=== PATIENT | female | born 1980 | race Caucasian/White ===

== ENCOUNTER → 2019-06-25 08:45 | Outpatient (CLI) | payer OTHER, SELFPAY ==
[2019-06-25 09:23] LABS: Add Manual Diff / Slide Review NO; Basophils Absolute Auto 0 /uL (0-100); Basophils Percent Auto 0.6 % (0-2); Eosinophils Absolute Auto 100 /uL (0-450); Eosinophils Percent Auto 1.3 % (2-4); Hemoglobin 15.4 g/dL (12.0-16.0); Lymphocytes Absolute Auto 1400 /uL (1100-4500); Lymphocytes Percent Auto 26.6 % (25-40); Mean Corpuscular HGB Conc 34.2 % (30-36); Mean Corpuscular Hemoglobin 32.6 PG (26-34); Mean Corpuscular Volume 95.4 fL (80-100); Monocytes Absolute Auto 400 /uL (0-900); Monocytes Percent Auto 7.1 % (3-14); Neutrophils Absolute Auto 3400 /uL (1500-7000); Neutrophils Percent Auto 64.4 % (50-75); Platelet Count 238 X10^3/uL (150-400); Red Blood Cell Count 4.72 X10^6/uL (4.0-5.2); Red Cell Distribution Width 12.7 % (11.6-14.8); White Blood Cell Count 5.2 X10^3/uL (4.5-11.0)
[2019-06-25 09:39] LABS: Alanine Aminotransferase 16 IU/L (9-52); Albumin 4.7 g/dL (3.5-5.0); Albumin Globulin Ratio 1.4 (1.0-2.8); Alkaline Phosphatase 45 U/L (38-126); Aspartate Aminotransferase 26 IU/L (14-36); BUN Creatinine Ratio 17.5 (6-22); Bilirubin Total 0.9 mg/dL (0.2-1.3); Blood Urea Nitrogen 14 mg/dL (7-17); Calcium 9.5 mg/dL (8.4-10.2); Carbon Dioxide 27 mmol/L (22-32); Chloride 102 mmol/L (98-107); Cholesterol 151 mg/dL (140-199); Estimated Glomerular Filt Rate > 60.0 mL/min (>60); Globulin 3.3 g/dL (1.7-4.1); Glucose 92 mg/dL (70-100); HDL Cholesterol 96 mg/dL (40-60); HEMOLYSIS < 15 (0-50); LDL Cholesterol Calculated 37 mg/dL (<100); Potassium 4.2 mmol/L (3.4-5.1); Sodium 137 mmol/L (137-145); Triglycerides 92 mg/dL (35-150)
[2019-06-25 09:43] LABS: Erythrocyte Sedimentation Rate 2 MM/HR (0-20)
[2019-06-25 10:24] LABS: Thyroid Stimulating Hormone 1.96 uIU/mL (0.47-4.68)
== END ==
DX: R53.83 Other fatigue (principal); D62 Acute posthemorrhagic anemia
CPT/HCPCS: 36415; 80053; 80061; 84443; 85025; 85651

== ENCOUNTER 2019-08-14 06:05 | Emergency (ER) | payer OTHER, SELFPAY ==
[2019-08-14 06:16] VITALS: BP 121/69; PULSE 66; RESP 16; TEMP 36.6; O2SAT 99; BMI 21.2
--- NOTE | 2019-08-14 06:33 | ED_ITS ---
HPI - Nausea/Vomiting/Diarrhea General Chief complaint: Nausea/Vomiting/Diarrhea Stated complaint: gastrointestinal problem, lower gi Time Seen by Provider: 08/14/19 06:06 Source: patient Mode of arrival: Ambulatory Limitations: no limitations History of Present Illness HPI Narrative: 38-year-old female nonsmoker with noncontributory medical history presents with a chief complaint of episodes of loose stool, nausea and generally feeling unwell, coming in waves over the past few weeks. She had multiple episodes of explosive diarrhea over the weekend, but yesterday was much better. She did have an upper respiratory infection and is just finishing course of amoxicillin. She has had subjective fever but nothing measured. Her chief concern is that a co-worker was just diagnosed with Giardia and has very similar symptoms. Patient herself denies any travel or exposure to bad food. She is not dizzy nor weak or lightheaded. MD complaint: nausea and diarrhea Onset (ago): day(s) Description of Diarrhea: continuous Associated Abdominal Pain: No Severity: moderate Relieving factors: none Exacerbating factors: none Context: sick contacts Related Data Previous Rx's Medication Instructions Recorded Breast Pump - Double Electric / TOPICAL #1 11/12/16 ibuprofen 600 mg PO Q6HP PRN #30 tab 01/23/17 amoxicillin 875 mg-potassium 1 tab PO BID #20 tab 08/02/19 clavulanate 125 mg tablet benzonatate 100 mg capsule 100 mg PO BID PRN #14 cap 08/02/19 Allergies Allergy/AdvReac Type Severity Reaction Status Date / Time gluten [GLUTEN] Allergy Severe Hives Verified 08/14/19 06:20 Review of Systems Constitutional Constitutional: Denies chills, Denies fatigue, Denies fever(s), Denies frequent falls, Denies lethargy and Denies weakness Eyes Eyes: Denies change in vision, Denies eye discharge, Denies irritation and Denies loss of vision ENT Ears, Nose, Mouth, and Throat: Denies change in voice, Denies dizziness, Denies neck pain, Denies sore throat and Denies throat swelling Cardiovascular Cardiovascular: Denies chest pain, Denies irregular heart rhythm, Denies lightheadedness, Denies palpitations, Denies dyspnea, Denies dyspnea on exertion and Denies orthopnea Respiratory Respiratory: Denies cough, Denies dyspnea, Denies dyspnea on exertion and Denies wheezing Gastrointestinal Gastrointestinal: Denies change in bowel habits, Reports diarrhea, Denies nausea and Denies vomiting Genitourinary Genitourinary: Denies hematuria, Denies flank pain, Denies urinary incontinence and Denies urinary urgency Musculoskeletal Musculoskeletal: Denies back pain, Denies muscle weakness, Denies neck pain, Denies numbness and Denies tingling Integumentary/Breasts Skin/Breast: Denies pruritus, Denies erythema, Denies rash and Denies wounds Neurologic Neurologic: Denies behavioral changes, Denies confusion, Denies dizziness, Denies frequent falls, Denies loss of vision, Denies numbness, Denies tingling and Denies weakness Psychiatric Psychiatric: Denies anxiety, Denies behavioral changes, Denies confusion, Denies depression, Denies homicidal ideation and Denies suicidal ideation Endocrine Endocrine: Denies fatigue, Denies flushing and Denies palpitations Hematologic/Lymphatic Hematologic/Lymphatic: Denies easy bruising Allergic/Immunologic Allergic/Immunologic: Denies urticaria, Denies throat swelling and Denies wheezing Patient History Family History Mother Rheumatoid arthritis Social History Smoking Status: Never smoker alcohol intake frequency: 0-2 drinks per day Substance Use Type: does not use Exam Narrative Exam Narrative: GENERAL: [38] year old patient appears stated age. Well- nourished, well-developed patient, in mild distress. HEAD: Atraumatic. Normocephalic. EYES: Pupils equal round and reactive. Extraocular motions intact. No scleral icterus. No injection or drainage. ENT: Nose without bleeding, purulent drainage. Throat without erythema, tonsillar hypertrophy or exudate. Airway patent. NECK: Trachea midline. Non tender CARDIOVASCULAR: Regular rate and rhythm without murmurs, gallops, or rubs. RESPIRATORY: Clear to auscultation. Breath sounds equal bilaterally. No wheezes, rales, or rhonchi. GASTROINTESTINAL: Abdomen soft, non-tender, nondistended. EXTREMITIES: No edema or joint tenderness. BACK: Nontender without deformity or crepitance. No flank tenderness. NEURO: AOx3. SKIN: No rash or erythema of visible areas Initial Vital Signs Initial Vital Signs: Vital Signs Temperature 97.8 F 08/14/19 06:16 Pulse Rate 66 08/14/19 06:16 Respiratory Rate 16 08/14/19 06:16 Blood Pressure 121/69 08/14/19 06:16 Pulse Oximetry 99 08/14/19 06:16 Course Vital Signs Vital signs: Vital Signs - 8 hr 08/14/19 06:16 Temperature 97.8 F Pulse Rate 66 Respiratory Rate 16 Blood Pressure 121/69 Pulse Oximetry 99 Discharge Plan Departure Patient Disposition: Home Clinical Impression: Diarrhea Qualifiers: Diarrhea type: unspecified type Qualified Code(s): R19.7 - Diarrhea, unspecified Discharge Date/Time: 08/14/19 07:16 Instructions: Diarrhea Activity Restrictions/Additional Instructions: 1. Drink plenty of fluids with frequent small sips. 2. For the next 24 hours a clear liquid diet is advised. After that please employ a brat diet which would include bananas, rice, apples, toast. 3. Please take medications as directed. 4. Please follow-up with your doctor in the next 1-2 days. Call the office for an appointment. 5. Please return to the emergency Department for any worsening or persistent symptoms, such as increasing pain or fever. Prescriptions: No Action amoxicillin-pot clavulanate [Augmentin] 875-125 mg tablet 1 tab PO BID Qty: 20 RF: 0 benzonatate [Tessalon Perles] 100 mg capsule 100 mg PO BID PRN (Reason: cough) Qty: 14 RF: 0 Breast Pump - Double Electric Topical Qty: 1 RF: 0 ibuprofen 600 MG tablet 600 mg PO Q6HP PRNQty: 30 RF: 0 Referrals: Hussein Lutz MD [Primary Care Provider] -
--- NOTE | 2019-08-14 07:10 | PC.NURSE ---
provided stool sample. stool soft formed brown. No liquid or loose stool provided.
== END 2019-08-14 07:16 | disposition home or self-care (01) ==
PROVIDERS: Emergency Provider Emergency Medicine
DX: R19.7 Diarrhea, unspecified (principal)
CPT/HCPCS: 87177; 99282

== ENCOUNTER → 2019-10-23 16:58 | Outpatient (CLI) | payer OTHER, SELFPAY ==
[2019-10-23 18:53] LABS: Progesterone, Total 0.91 ng/mL
== END ==
DX: N97.0 Female infertility associated with anovulation (principal)
CPT/HCPCS: 36415; 84144

== ENCOUNTER → 2019-11-10 12:01 | Outpatient (CLI) | payer OTHER, SELFPAY | DX: N97.0 Female infertility associated with anovulation (principal) | CPT/HCPCS: 36415; 84144 ==

== ENCOUNTER → 2019-12-04 10:35 | Outpatient (CLI) | payer OTHER, SELFPAY ==
[2019-12-11 09:29] LABS: C.trachomatis RNA NEGATIVE
[2019-12-11 09:30] LABS: N.gonorrhoeae RNA NEGATIVE
== END ==
PROVIDERS: Visit Provider Obstetrics & Gynecology
DX: R10.2 Pelvic and perineal pain (principal)
CPT/HCPCS: 87491; 87591

== ENCOUNTER → 2019-12-13 09:08 | Outpatient (CLI) | payer OTHER, SELFPAY | DX: N97.0 Female infertility associated with anovulation (principal) | CPT/HCPCS: 36415; 84144 ==

== ENCOUNTER → 2020-02-11 12:31 | Outpatient (CLI) | payer OTHER, SELFPAY ==
[2020-02-11 14:48] LABS: HCG Quantitative /Beta subunit 1464.8 mIU/mL
== END ==
PROVIDERS: Obstetrics & Gynecology
DX: N91.2 Amenorrhea, unspecified (principal); Z87.59 Personal history of other complications of pregnancy, childbirth and the puerperium
CPT/HCPCS: 36415; 84702

== ENCOUNTER → 2020-02-13 11:09 | Outpatient (CLI) | payer OTHER, SELFPAY ==
[2020-02-13 13:59] LABS: HCG Quantitative /Beta subunit 3418.3 mIU/mL
== END ==
PROVIDERS: Referring Provider Obstetrics & Gynecology; Visit Provider Obstetrics & Gynecology
DX: N91.2 Amenorrhea, unspecified (principal); Z87.59 Personal history of other complications of pregnancy, childbirth and the puerperium
CPT/HCPCS: 84702

== ENCOUNTER → 2020-03-07 14:44 | Outpatient (ROUT) | payer OTHER, SELFPAY ==
[2020-03-07 16:21] LABS: Urine N gonorrhoeae NOT DETECTED
[2020-03-07 16:22] LABS: Urine Chlamydia NOT DETECTED
== END ==
PROVIDERS: PCP Obstetrics & Gynecology; Visit Provider Obstetrics & Gynecology
DX: Z34.81 Encounter for supervision of other normal pregnancy, first trimester (principal); Z11.3 Encounter for screening for infections with a predominantly sexual mode of transmission; Z3A.08 8 weeks gestation of pregnancy
CPT/HCPCS: 87491; 87591

== ENCOUNTER → 2020-03-28 09:04 | Outpatient (CLI) | payer OTHER, SELFPAY ==
[2020-03-28 10:06] LABS: Add Manual Diff / Slide Review NO; Basophils Absolute Auto 0 /uL (0-100); Basophils Percent Auto 0.4 % (0-2); Eosinophils Absolute Auto 100 /uL (0-450); Eosinophils Percent Auto 1.9 % (2-4); Hematocrit 44.3 % (36-46); Hemoglobin 15.8 g/dL (12.0-16.0); Lymphocytes Absolute Auto 1200 /uL (1100-4500); Lymphocytes Percent Auto 15.8 % (25-40); Mean Corpuscular HGB Conc 35.7 % (30-36); Mean Corpuscular Hemoglobin 33.6 PG (26-34); Mean Corpuscular Volume 94.2 fL (80-100); Monocytes Absolute Auto 500 /uL (0-900); Monocytes Percent Auto 6.9 % (3-14); Neutrophils Absolute Auto 5500 /uL (1500-7000); Platelet Count 220 X10^3/uL (150-400); Red Cell Distribution Width 12.2 % (11.6-14.8); White Blood Cell Count 7.4 X10^3/uL (4.5-11.0)
[2020-03-28 10:28] LABS: Appearance Urine UA CLEAR; Bilirubin Urine UA NEGATIVE (NEGATIVE); Color Urine UA YELLOW; Glucose Urine UA NEGATIVE (Negative); Ketones Urine UA NEGATIVE (NEGATIVE); Leukocyte Esterase Urine UA NEGATIVE (NEGATIVE); Nitrite Urine UA NEGATIVE (Negative); Occult Blood Urine UA NEGATIVE (Negative); Protein Urine UA NEGATIVE (Negative); Specific Gravity Urine UA <=1.005 (1.000-1.035); Urobilinogen Urine UA 0.2 E.U./dL (0.2)
[2020-03-28 11:40] LABS: Hepatitis B Surface Antigen NEGATIVE s/c (NEGATIVE); Rubella Antibody IgG 15.1 IU/mL (>15)
[2020-03-28 11:50] LABS: HIV 1 & 2 Ab/Ag 4th Gen Combo NEGATIVE (NEGATIVE); Hep C Virus Ab w/Reflex Quant NEGATIVE s/c (NEGATIVE)
[2020-03-29 04:19] LABS: RPR Screen Non Reactive (Non Reactive)
[2020-03-29 08:38] LABS: Varicella IgG Antibody 3824 index (Immune >165)
== END ==
PROVIDERS: Referring Provider Obstetrics & Gynecology; Visit Provider Obstetrics & Gynecology
DX: O09.521 Supervision of elderly multigravida, first trimester (principal); Z36.0 Encounter for antenatal screening for chromosomal anomalies
CPT/HCPCS: 36415; 80055; 81003; 81420; 86787; 86803; 86850; 86900; 86901; 87086; 87389

== ENCOUNTER → 2020-05-23 12:50 | Outpatient (CLI) | payer OTHER, SELFPAY ==
--- NOTE | 2020-05-23 12:51 | DI.US.S_ITS ---
PROCEDURE: US OB LIMITED INDICATIONS: CERVICAL LENGTH OUTSIDE/PRIOR DATING DATA: Last menstrual period (LMP): 01/11/2020 LMP-based estimated date of delivery (HETAL): 10/17/2020 First dating scan (date and location): 01/04/2020? Estimated date of delivery (HETAL) from first dating scan: Not documented TECHNIQUE: Real-time scanning was performed of the fetus, with image documentation. Endovaginal scanning: Not performed COMPARISON: [facility], , OB >= 14 WEEKS FETUS, 05/02/2020, 10:38. FINDINGS: A single living intrauterine gestation is present. heart rate 145 BPM. Maternal cervical canal: 5.5 cm long. Normal lower limit is 2.5 cm. Estimated gestational age from initial scan: Not documented. IMPRESSION: Normal cervical length measuring 5.5 cm. No funneling. Dictated by: Neftaly Colon M.D. on 05/23/2020 at 13:24 Approved by: Neftaly Cooln M.D. on 05/23/2020 at 13:27
[2020-05-23 13:13] LABS: Bacteria Urine None Seen; RBC Urine None Seen (0-5/HPF)
[2020-05-23 14:25] LABS: Appearance Urine UA CLEAR; Bilirubin Urine UA NEGATIVE (NEGATIVE); Color Urine UA YELLOW; Glucose Urine UA NEGATIVE (Negative); Ketones Urine UA NEGATIVE (NEGATIVE); Leukocyte Esterase Urine UA TRACE (NEGATIVE); Nitrite Urine UA NEGATIVE (Negative); Occult Blood Urine UA NEGATIVE (Negative); Protein Urine UA NEGATIVE (Negative); Specific Gravity Urine UA <=1.005 (1.000-1.035); Urobilinogen Urine UA 0.2 E.U./dL (0.2)
[2020-05-23 14:30] LABS: Culture Indicated Urine Cult Not Indicated; Squamous Epithelial Cell Urine 5-10 /HPF (0-5/HPF); WBC Urine 0-1/HPF (0-5/HPF)
== END ==
PROVIDERS: Referring Provider Obstetrics & Gynecology; Visit Provider Obstetrics & Gynecology
DX: O09.522 Supervision of elderly multigravida, second trimester (principal); O26.892 Other specified pregnancy related conditions, second trimester; R10.2 Pelvic and perineal pain; R39.9 Unspecified symptoms and signs involving the genitourinary system; Z3A.19 19 weeks gestation of pregnancy
CPT/HCPCS: 76815; 81001

== ENCOUNTER → 2020-05-30 12:10 | Outpatient (CLI) | payer OTHER, SELFPAY ==
--- NOTE | 2020-05-30 12:11 | DI.US.S_ITS ---
PROCEDURE: US OB >= 14 WEEKS FETUS INDICATIONS: ANATOMY OUTSIDE/PRIOR DATING DATA: Last menstrual period (LMP): 01/11/2020. LMP-based estimated date of delivery (HETAL): 10/17/2020 . First dating scan (date and location): 02/22/20. Estimated date of delivery (HETAL) from first dating scan: 10/17/2020 . TECHNIQUE: Real-time scanning was performed of the fetus, with image documentation and biometric measurements. Endovaginal scanning: No COMPARISON: [facility], , OB >= 14 WEEKS FETUS, 05/02/2020, 10:38. FINDINGS: General: A single living intrauterine gestation is present. Presentation: Breech. Placenta: Placental position is posterior , without previa. Amniotic fluid index: 12.3 cm, normal range is 5-24 cm. heart rate: 141 beats per minute. Maternal cervical canal: 3.9 cm long. Normal lower limit is 2.5 cm. biometrics: Biparietal diameter: 20 weeks 5 days Head circumference: 21 weeks 1 day Abdominal circumference: 21 weeks 2 days Femur length: 20 weeks 3 days Estimated gestational age from initial scan: 20 weeks 0 days Composite gestational age from present scan: 20 weeks 6 days Estimated weight and percentile: 388 g; 91st percentile Measurement variability for biometric dating: +/- 7 days from 14 weeks to 15 weeks 6 days gestation, +/- 10 days from 16 weeks to 21 weeks 6 days gestation, +/- 2 weeks from 22 weeks to 27 weeks 6 days gestation, +/- 3 weeks for 28 weeks gestation or later. weight reference: 4500 g or EFW >90/95% is considered macrosomia or large for gestational age. EFW <10% is small for gestational age. EFW 5% or less is considered intra-uterine growth restriction. Anatomic survey: Neuro: Ventricles are non-dilated at less than 10 mm. Cisterna magna is normal at 3-11 mm. Cerebellum is normal in size and morphology. Nuchal skin fold: Normal at less than 6 mm between 14-21 weeks gestational age. Face: Nose and lips, facial profile are normal. Spine: No evidence for spina bifida. Heart: 4-chambered heart is present, with normal ventricular outflow tracts. Diaphragm: Diaphragm is intact. Stomach: Left-sided stomach is present. Kidneys: No hydronephrosis. Normal is less than 5 mm in 2nd trimester, less than 7 mm in 3rd trimester. Cord: 3-vessel cord has orthotopic insertion. Bladder: Normal in size. Extremities: All 4 extremities identified. IMPRESSION: 1. Single living IUP redemonstrated and interval growth is normal. 2. Normal anatomic survey. Dictated by: Mateo Narayanan [facility] Interpreted: Quentin Johnson MD on 05/30/2020 at 13:51 Approved by: Quentin Johnson M.D. on 05/30/2020 at 15:59
== END ==
PROVIDERS: PCP Obstetrics & Gynecology; Referring Provider Obstetrics & Gynecology; Visit Provider Obstetrics & Gynecology
DX: Z34.82 Encounter for supervision of other normal pregnancy, second trimester (principal); Z3A.20 20 weeks gestation of pregnancy
CPT/HCPCS: 76811

== ENCOUNTER → 2020-07-21 09:16 | Outpatient (CLI) | payer OTHER, SELFPAY ==
[2020-07-21 12:24] LABS: Hematocrit 34.1 % (36-46); Hemoglobin 11.6 g/dL (12.0-16.0)
[2020-07-21 12:53] LABS: GTT (PREG) 1 Hour PP 50gm Dose 136 mg/dL (76-139)
== END ==
PROVIDERS: PCP Obstetrics & Gynecology; Referring Provider Obstetrics & Gynecology; Visit Provider Obstetrics & Gynecology
DX: Z34.82 Encounter for supervision of other normal pregnancy, second trimester (principal); Z3A.24 24 weeks gestation of pregnancy
CPT/HCPCS: 36415; 82950; 85014; 85018

== ENCOUNTER → 2020-09-22 12:41 | Outpatient (CLI) | payer OTHER, SELFPAY ==
--- NOTE | 2020-09-22 12:42 | DI.US.S_ITS ---
PROCEDURE: US OB LIMITED INDICATIONS: GROWTH ULTRASOUND OUTSIDE/PRIOR DATING DATA: Last menstrual period (LMP): 01/11/20 . LMP-based estimated date of delivery (HETAL): 10/17/20 . First dating scan (date and location): 02/22/20 . Estimated date of delivery (HETAL) from first dating scan: 10/17/20 . TECHNIQUE: Real-time scanning was performed of the fetus, with image documentation. Endovaginal scanning: Not needed COMPARISON: [facility], OB LIMITED, 05/23/2020, 13:03. FINDINGS: A single living intrauterine gestation is present. Presentation: Vertex. Placenta: Placental position is posterior , without previa. Amniotic fluid index: 18.6 cm, normal range is 5-24 cm. heart rate: 143 beats per minute. Maternal cervical canal: 5.5 cm long. Normal lower limit is 2.5 cm. Estimated gestational age from initial scan: 36 weeks 3 days biometry is internally consistent with a current gestational age estimate of 39 weeks 0 days. BPD 9.7 cm, 39 weeks 3 days. Head circumference 35.5 cm, 41 weeks 3 days. Abdominal circumference 34.9 cm, 38 weeks 5 days. Femur length 7.1 cm, 36 weeks 1 day. The estimated current weight is 3532 g, at the threshold for macrosomia, 95th percentile for current gestational age. . IMPRESSION: Normal amniotic fluid volume, vertex presentation. The biometry yields an estimated weight of 3532 g, which places the fetus at the thoracic old for macrosomia, at the upper 95th percentile. Normal amniotic fluid volume. Dictated by: Honorio Roman M.D. on 09/22/2020 at 14:59 Approved by: Honorio Roman M.D. on 09/22/2020 at 15:03
== END ==
PROVIDERS: Referring Provider Obstetrics & Gynecology; Visit Provider Obstetrics & Gynecology
DX: Z34.83 Encounter for supervision of other normal pregnancy, third trimester (principal); Z3A.36 36 weeks gestation of pregnancy
CPT/HCPCS: 76815; 87653

== ENCOUNTER → 2020-09-22 14:31 | Outpatient (CLI) | payer OTHER, SELFPAY ==
[2020-09-23 11:26] LABS: Strep Grp B PCR POS for Grp B Strep
== END ==
PROVIDERS: Visit Provider Obstetrics & Gynecology
DX: Z34.83 Encounter for supervision of other normal pregnancy, third trimester (principal); Z3A.36 36 weeks gestation of pregnancy
CPT/HCPCS: 87653

== ENCOUNTER 2020-09-29 12:50 | Outpatient (CLI) | payer OTHER, SELFPAY ==
--- NOTE | 2020-09-29 17:49 | PM.OBTRLD ---
Visit Information Visit Information Date of evaluation: 09/29/20 Primary OB Provider: Helen Yuan Reason for Evaluation: Yes non-stress test Comments/Additional reasons for admission: Patient at 39 and 6 sent for NST for decreased movement, no other complaints. 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 Rosacea (~2018) (spontaneous vaginal delivery) (~2016) UTI (urinary tract infection) Surgical History (Updated 03/05/20 @ 14:21 by Romelia Bermeo RN) H/O wisdom tooth extraction (~2002) History of excision of pilonidal cyst (~2006) S/P lumpectomy, left breast (~2004) Family History (Updated 03/06/20 @ 20:47 by Shira Valentin) Mother Rheumatoid arthritis Thyroid cancer TIA (transient ischemic attack) Ocular migraine Age related osteoporosis Thrombosis Pulmonary embolism Hypertension Father Hypertension Grandfather Accident Grandmother Colorectal cancer Squamous cell skin cancer Hypertension Grandfather Myocardial infarction Grandmother Mental health disorder Sister Foot drop Anorexia Sister Numbness in both hands Family/Other Epilepsy Social History marital status: number of children: 1 household members: spouse and children pets and animals: Yes (X 2 dogs and X 1 cat) education level: master's degree occupational status: employed current occupational exposures/hazards: No special mikael needs: No Smoking Status: Never smoker second hand exposure: No alcohol intake: former substance use type: does not use Review of Systems Constitutional Constitutional: Reports system reviewed and no additional complaints, except as documented Evaluation Evaluation Baseline heart rate: 130 Variability: Moderate (11-25) monitor accelerations: Present monitor decelerations: Absent Contraction Frequency (minutes): 4 Category of Tracing: Reactive Status: Category l Diagnosis, Plan/Disposition Plan/Disposition Plan: Emphatically reactive NST, reassuring status. Patient arabella asymptomatically Q 4, labor precautions reiterated. Home with routine precautions. OB Disposition: home
== END 2020-09-29 13:36 | disposition home or self-care (01) ==
LOC: LABOR 13:21 → OB 10-07 09:38
PROVIDERS: Referring Provider Obstetrics & Gynecology; Visit Provider Obstetrics & Gynecology
DX: O36.8130 Decreased fetal movements, third trimester, not applicable or unspecified (principal); Z3A.37 37 weeks gestation of pregnancy
CPT/HCPCS: 59025; G0378; G0379

== ENCOUNTER → 2020-10-06 11:34 | Outpatient (CLI) | payer OTHER, SELFPAY ==
[2020-10-06 12:01] LABS: COVID19 -Nasal RAPID Negative (Negative)
== END ==
PROVIDERS: Visit Provider Obstetrics & Gynecology
DX: Z01.812 Encounter for preprocedural laboratory examination (principal); Z20.822 Contact with and (suspected) exposure to COVID-19
CPT/HCPCS: 87635

== ENCOUNTER 2020-10-08 18:26 | Inpatient (IN) | payer OTHER, SELFPAY ==
[2020-10-08 20:12] VITALS: BP 123/62
[2020-10-08] MEDS: DINOPROSTONE VAG (CERVIDIL) 10 MG VAG (20:13)
[2020-10-08 20:29] LABS: Add Manual Diff / Slide Review NO; Basophils Absolute Auto 0 /uL (0-100); Basophils Percent Auto 0.5 % (0-2); Eosinophils Absolute Auto 100 /uL (0-450); Eosinophils Percent Auto 0.8 % (2-4); Hematocrit 31.7 % (36-46); Hemoglobin 10.3 g/dL (12.0-16.0); Lymphocytes Absolute Auto 1800 /uL (1100-4500); Lymphocytes Percent Auto 19.3 % (25-40); Mean Corpuscular HGB Conc 32.5 % (30-36); Mean Corpuscular Hemoglobin 28.5 PG (26-34); Mean Corpuscular Volume 87.5 fL (80-100); Monocytes Absolute Auto 900 /uL (0-900); Monocytes Percent Auto 9.7 % (3-14); Neutrophils Absolute Auto 6400 /uL (1500-7000); Neutrophils Percent Auto 69.7 % (50-75); Platelet Count 220 X10^3/uL (150-400); Red Blood Cell Count 3.62 X10^6/uL (4.0-5.2); Red Cell Distribution Width 14.1 % (11.6-14.8); White Blood Cell Count 9.2 X10^3/uL (4.5-11.0)
[2020-10-08] MEDS: ZOLPIDEM 5 MG TABLET PO (23:22)
--- NOTE | 2020-10-09 08:05 | P.HPOB_ITS ---
OB HPI Date/Time Date of admission: 10/09/20 Date Patient Seen: 10/09/20 Time Patient Seen: 07:50 History of Present Condition Chief complaint: EVAL OF LABOR : 3 Para: 1 Estimated Date of Delivery: 10/16/20 Estimated Gestational Age (weeks): 39 Narrative: Zack Aguillon is a 40 year old 011 with an HETAL of 39 weeks by first-trimester ultrasound, admitted for induction of labor for suspected macrosomia. The patient has a history of a forceps assisted vaginal delivery of an 8 lb 6 oz baby complicated by third-degree laceration, an 3rd trimester us showing this baby on track to be 9-9.5lbs. Her has been otherwise uncomplicated, with a normal glucose screen with appropriate timing. Her prior was similarly uncomplicated, and she has no contributory supervisor incising, medical, surgical, or family history. Indications Indication for induction OB: other (suspected macrosomia) History of Present care: good care Dating criteria: LMP confirmed by 1st trimester US Ultrasounds: normal 1st trimester US and normal mid trimester US Obstetrical complications: none Medical complications: none Preadmission Labs Blood type: O (+) positive -: GBS status: positive, HBsAG: negative, HIV: negative and RPR/VDLR: negative -: Chlamydia screen: not detected and Gonorrhea screen: not detected -: Rubella: immune and Varicella: immune Cell-free DNA: wnl Urine: no growth 1 hr GTT: 136 Prior (ies) History: G1: 01/20/17, FAVD, 42.1, 8#6, F, 3rd degree laceration G2: 01/06/20, SAB, 6 wks Evaluation Evaluation Baseline heart rate: 130 Variability: Moderate (11-25) monitor accelerations: Present monitor decelerations: Absent Contraction Frequency (minutes): 5 Category of Tracing: Reactive Status: Category l Cervical dilation (cm): 3 Cervical effacement (%): 75 station: -1 Laboratory results: Laboratory Tests 10/08/20 10/08/20 20:00 20:00 WBC 9.2 RBC 3.62 L Hgb 10.3 L Hct 31.7 L MCV 87.5 MCH 28.5 MCHC 32.5 RDW 14.1 Plt Count 220 Neut % (Auto) 69.7 Lymph % (Auto) 19.3 L [place] % (Auto) 9.7 Eos % (Auto) 0.8 L Baso % (Auto) 0.5 Neut # (Auto) 6400 Lymph # (Auto) 1800 [place] # (Auto) 900 Eos # (Auto) 100 Baso # (Auto) 0 Blood Type O Positive Antibody Screen Negative [facility] Medical History Allergies (~2000) AMA (advanced maternal age) multigravida 35+ Anxiety (~2016) Dense breast tissue Episode of syncope (~2016) Maternal blood transfusion (~2016) 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 Rosacea (~2018) (spontaneous vaginal delivery) (~2016) UTI (urinary tract infection) Surgical History H/O wisdom tooth extraction (~2002) History of excision of pilonidal cyst (~2006) S/P lumpectomy, left breast (~2004) Family History Mother Rheumatoid arthritis Thyroid cancer TIA (transient ischemic attack) Ocular migraine Age related osteoporosis Thrombosis Pulmonary embolism Hypertension Father Hypertension Grandfather Accident Grandmother Colorectal cancer Squamous cell skin cancer Hypertension Grandfather Myocardial infarction Grandmother Mental health disorder Sister Foot drop Anorexia Sister Numbness in both hands Family/Other Epilepsy Social History marital status: number of children: 1 household members: spouse and children pets and animals: Yes (X 2 dogs and X 1 cat) education level: master's degree occupational status: employed current occupational exposures/hazards: No special mikael needs: No Smoking Status: Never smoker second hand exposure: No alcohol intake: former substance use type: does not use Meds Home Medications and Allergies Home Medications Medication Instructions Recorded Confirmed Type prenat.vits,miguelina,ali-lfjd-shucj 1 tab PO DAILY 03/05/20 10/08/20 History Allergies Allergy/AdvReac Type Severity Reaction Status Date / Time gluten [GLUTEN] Allergy Severe Hives Verified 06/27/20 13:45 Review of Systems Constitutional Constitutional: Reports system reviewed and no additional complaints, except as documented Cardiovascular Cardiovascular: Reports system reviewed and no additional complaints, except as documented Respiratory Respiratory: Reports system reviewed and no additional complaints, except as documented Gastrointestinal Gastrointestinal: Reports system reviewed and no additional complaints, except as documented Musculoskeletal Musculoskeletal: Reports system reviewed and no additional complaints, except as documented Neurologic Neurologic: Reports system reviewed and no additional complaints, except as documented Exam Vital Signs (past 8 hours): 128/62, HR 71, afebrile Resp Effort & Inspection: normal respiratory effort Auscultation: clear to auscultation bilaterally Cardio Rate: regular rate Rhythm: regular rhythm GI Palpation: soft and No tender Extrem General: normal to inspection Objective Labs Result Diagrams: 10/08/20 20:00 Labs: Laboratory Results - last 24 hr 10/08/20 10/08/20 20:00 20:00 WBC 9.2 RBC 3.62 L Hgb 10.3 L Hct 31.7 L MCV 87.5 MCH 28.5 MCHC 32.5 RDW 14.1 Plt Count 220 Neut % (Auto) 69.7 Lymph % (Auto) 19.3 L [place] % (Auto) 9.7 Eos % (Auto) 0.8 L Baso % (Auto) 0.5 Neut # (Auto) 6400 Lymph # (Auto) 1800 [place] # (Auto) 900 Eos # (Auto) 100 Baso # (Auto) 0 Blood Type O Positive Antibody Screen Negative Assessment and Plan Assessment and Plan Assessment and Plan narrative: This patient is admitted for induction of labor for an EFW of just over 9#, with a history of FAVD of 8#6 with a 3rd degree perineal laceration. She has undergone cervical ripening with cervidil, which was removed this morning. Patient is for PCN for GBS starting now, and for pitocin per protocol after an adequate interval. - cEFM, toco - NO or epidural upon request
[2020-10-09] MEDS: PENICILLIN G POTASSIUM 5,000,000 UNIT in DEXTROSE 5% IN WATER 250 ML IV (08:41)
[2020-10-09] MEDS: LACTATED RINGERS 1,000 ML 100 ML IV ×2 (08:41→15:10)
[2020-10-09] MEDS: OXYTOCIN PREMIX 30 UNIT/500 ML PLAST..BAG IV (08:56)
[2020-10-09] MEDS: PENICILLIN G POTASSIUM 3,000,000 UNIT/50 ML FROZ.PIGGY 100 UNIT IV ×2 (12:26→16:23)
--- NOTE | 2020-10-09 12:44 | PM.OBPNLAB ---
Date/Time Date Patient Seen: 10/09/20 Time Patient Seen: 12:44 Pain Control Pain control: tolerating well Pelvic Exam Dilation (cm): 4 Effacement (%): 70 station: -1 Amniotic membrane status: Ruptured (AROM, clear) Contractions Contractions on admission: irregular Monitor mode: External Pitocin rate (mU/min): 13 Contraction frequency (min): 3 Contraction pattern: Regular Contraction intensity: Moderate Status status: Category l Heart Rate Baseline: 130 Monitor Accelerations: Present Monitor Decelerations: Absent Monitor Variability: Moderate Assessment and Plan Assessment: induction ongoing Plan: continuous present management Comments: s/p 2nd dose PCN, AROM for clear fluid at this exam. Continue present management.
--- NOTE | 2020-10-09 17:44 | P.PNOB_ITS ---
Date/Time Date Patient Seen: 10/09/20 Time Patient Seen: 17:45 Pain Control Pain control: epidural Pelvic Exam Dilation (cm): 6 Effacement (%): 80 station: -1 Amniotic membrane status: Ruptured (AROM, clear) Comments: SVE per nursing staff at 15:00 6.5/80/-1. Cervix edematous. Significant molding. Contractions Monitor mode: External Pitocin rate (mU/min): 14 Contraction frequency (min): 3 Contraction pattern: Regular Contraction intensity: Moderate Status status: Category l Heart Rate Baseline: 130 Monitor Accelerations: Present Monitor Decelerations: Early Monitor Variability: Moderate Comments: period of minimal variability, overall reassuring. Assessment and Plan Assessment: induction ongoing Plan: continuous present management Comments: IUPC inserted, no cervical change. Discussed suspicion for CPD. Dis cussed options and next steps. status reassuring, +scalp stim.
[2020-10-09] MEDS: METHYLERGONOVINE 0.2 MG/ML VIAL IM (18:45)
--- NOTE | 2020-10-09 19:16 | PM.OBPRVD ---
Labor & Delivery Delivery date: 10/09/20 Intrapartal events: Acceleration and Deceleration Cervical ripening method: per Cervidil protocol Induction method: per pitocin protocol Delivery augmentation: rupture of membranes Delivery monitor: external FHT, external uterine and internal uterine Route of delivery: L&D Laceration Description: Periurethral - 2nd Degree, Perineal - 1st Degree and Labial Delivery repair: vicryl Estimated blood loss (mL): 400 Anesthesia Type: Epidural Narrative: This patient presented for induction of labor for suspected macrosomia. She was induced with cervidil and pitocin. After a prolonged active phase, she progressed to fully dilated. She had a 30 minute second stage complicated by recurrent variable decelerations with pushing. She was delivered of a healthy baby girl, apgars 8+9, weight 8#6, with a body cord over the anterior shoulder. Shoulders delivered with ease, and the placenta delivered spontaneously and intact shortly thereafter. A 2nd degree longitudinal perineal laceration was repaired with 3-0 vicryl in a running fashion, and a left labial laceration extending to the clitoral francois was repaired with interrupted sutures as necessary to reapproximate the tissue. A right labial laceration was repaired with interrupted sutures to achieve hemostasis. 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 There were no other intrapartum or immediate complications. Baby 1: gender: Female Presentation: vertex Position: Left Occiput Anterior Placenta delivery description: Spontaneous Cord Vessel Description: 3 Vessels score (1 min): 8 score (5 min): 9 Plan for aftercare: Routine care.
[2020-10-09] MEDS: ACETAMINOPHEN 325 MG TABLET 650 MG PO (20:07)
[2020-10-09] MEDS: IBUPROFEN 600 MG TABLET PO (20:07)
[2020-10-10] MEDS: DERMOPLAST SPRAY 20% 60 ML 1 SPRAY TOP (01:24)
[2020-10-10] MEDS: ACETAMINOPHEN 325 MG TABLET 650 MG PO ×3 (01:24→14:46)
[2020-10-10] MEDS: IBUPROFEN 600 MG TABLET PO ×3 (01:25→14:46)
[2020-10-10] MEDS: METHYLERGONOVINE 0.2 MG TABLET PO ×3 (01:25→14:47)
[2020-10-10] MEDS: LANOLIN OINT 7 GM 1 APPLIC TOP ×2 (08:16→13:31)
[2020-10-10] MEDS: PRENATAL VIT,CALC/IRON/FOLIC 1 TABLET 1 TAB PO (08:17)
--- NOTE | 2020-10-10 10:09 | PM.OBDS.1 ---
Discharge Providers Provider Date of admission: 10/08/20 18:26 Discharge Date: 10/10/20 Primary care physician: Doctor Chuy MD Consults: 10/10/20 19:12 Consult to [employer] Routine Comment: Discharge provider: Helen Yuan MD Summary Hospital Course Date Patient Seen: 10/10/20 Time Patient Seen: 10:09 Procedures: Spontaneous vaginal delivery Hospital Course: This patient is a 40-year-old G2 now P2 admitted for induction of labor at 39 weeks for suspected macrosomia. She was induced with Cervidil and Pitocin, and after prolonged active stage of labor, progressed to fully dilated. After short pushing stage, she was delivered of a healthy baby girl, Apgars 8 and 9, weight 8 lb 6 oz. A second-degree perineal laceration and bilateral labial lacerations were repaired with 3-0 Vicryl in the usual fashion. 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 There were no other intrapartum or immediate complications, and the patient went home on day 1 with routine precautions and follow-up. Peripartum Data Delivery Method: Natural Vaginal Laceration Description: Perineal - 2nd Degree and Labial Procedures: Vaginal delivery complications: none [place] 1: Gender: Female Disposition of : home Discharge Diagnosis (1) Vaginal delivery: Status: Acute Status at Discharge Cognitive/behavioral status at discharge: oriented Functional status at discharge: independent ambulation Overall status at discharge: patient is progressing back to baseline Time Spent with Patient Time attestation: Total time spent providing and/or coordinating discharge services: Objective Labs Result Diagrams: 10/08/20 20:00 Exam Vital Signs (past 8 hours): 112/67, HR 81 Narrative Exam Narrative: Patient well-appearing, resting in bed. Ambulating, tolerating p.o., voiding, passing flatus. Mild to moderate lochia. No headaches, visual changes, chest pain, palpitations, leg pain, good vulvar pain control without opioids. Const General: cooperative, healthy appearing and comfortable Resp Effort & Inspection: normal respiratory effort Auscultation: clear to auscultation bilaterally Cardio Rate: regular rate Rhythm: regular rhythm GI Palpation: soft and No tender Other: Fundus firm, well below U, some gas in belly Discharge Plan Discharge Plan Patient Disposition: Home Discharge orders & Medications Prescriptions: Continued prenat.vits,miguelina,[id number] Tablet 1 tab PO DAILY RF: 0 Follow up/Referrals: Doctor Vera MD [Primary Care Provider] - WeedHelen MD [Physician] - 6 Weeks () Diet/Activity/Treatments Diet: Regular Activity: Nothing in the vagina for 6 weeks. Avoid lifting more than 10 lb for 6 weeks. If you have increasing vaginal bleeding, fevers, chills, headaches, visual changes, trouble breathing, chest pain, increasing abdominal pain, or any other symptoms or concerns, call the clinic or come to the emergency room. Other treatments: Use 600 mg of ibuprofen every 6 hours and 650 mg of acetaminophen every 6 hours for pain control as needed. Skin/Wound/Dressing Care Report to your healthcare provider any signs of infection, such as:: chills, fever, night sweats, increased pain, unusual drainage and unusual redness Visit Report/Discharge Packet Instructions: DI for Labor and Delivery, Vaginal Discharge Data Primary Care Provider: Doctor Chuy
[2020-10-10] MEDS: DOCUSATE 100 MG CAPSULE PO (11:01)
[2020-10-10 14:20] VITALS: BP 123/62; PULSE 68; RESP 16; TEMP 36.4
== END 2020-10-10 17:00 | disposition home or self-care (01) | DRG 807 ==
PROVIDERS: Admitting Provider Obstetrics & Gynecology; Referring Provider Obstetrics & Gynecology; Visit Provider Obstetrics & Gynecology
DX: O99.824 Streptococcus B carrier state complicating childbirth (principal); Z37.0 Single live birth; Z3A.39 39 weeks gestation of pregnancy; O70.1 Second degree perineal laceration during delivery; O70.0 First degree perineal laceration during delivery; Z20.822 Contact with and (suspected) exposure to COVID-19
CPT/HCPCS: 01967; 36415; 59050; 59400; 85025; 86850; 86900; 86901; G0379; J2210; J2540; J2590

== ENCOUNTER → 2021-02-19 08:08 | Outpatient (CLI) | payer OTHER, SELFPAY ==
[2021-02-19 08:31] LABS: Add Manual Diff / Slide Review NO; Basophils Absolute Auto 0 /uL (0-100); Basophils Percent Auto 0.9 % (0-2); Eosinophils Absolute Auto 100 /uL (0-450); Eosinophils Percent Auto 3.1 % (2-4); Hematocrit 44.6 % (36-46); Hemoglobin 14.8 g/dL (12.0-16.0); Lymphocytes Absolute Auto 1400 /uL (1100-4500); Lymphocytes Percent Auto 30.6 % (25-40); Mean Corpuscular HGB Conc 33.2 % (30-36); Mean Corpuscular Hemoglobin 29.8 PG (26-34); Mean Corpuscular Volume 89.9 fL (80-100); Monocytes Absolute Auto 400 /uL (0-900); Monocytes Percent Auto 9.1 % (3-14); Neutrophils Absolute Auto 2500 /uL (1500-7000); Neutrophils Percent Auto 56.3 % (50-75); Platelet Count 243 X10^3/uL (150-400); Red Blood Cell Count 4.96 X10^6/uL (4.0-5.2); Red Cell Distribution Width 14.6 % (11.6-14.8); White Blood Cell Count 4.5 X10^3/uL (4.5-11.0)
[2021-02-19 08:51] LABS: Alanine Aminotransferase 20 IU/L (<35); Albumin 4.8 g/dL (3.5-5.0); Albumin Globulin Ratio 1.4 (1.0-2.8); Alkaline Phosphatase 77 U/L (38-126); Aspartate Aminotransferase 26 IU/L (14-36); BUN Creatinine Ratio 15.8 (6-22); Bilirubin Total 0.3 mg/dL (0.2-1.3); Blood Urea Nitrogen 12 mg/dL (7-17); Calcium 9.6 mg/dL (8.4-10.2); Carbon Dioxide 27 mmol/L (22-32); Chloride 103 mmol/L (98-107); Cholesterol 195 mg/dL (140-199); Estimated Glomerular Filt Rate > 60.0 mL/min (>60); Globulin 3.4 g/dL (1.7-4.1); Glucose 91 mg/dL (70-100); HDL Cholesterol 97 mg/dL (40-60); HEMOLYSIS < 15 (0-50); LDL Cholesterol Calculated 83 mg/dL (<100); Sodium 139 mmol/L (137-145); Total Protein 8.2 g/dL (6.3-8.2); Triglycerides 73 mg/dL (35-150)
[2021-02-19 08:52] LABS: Potassium 4.1 mmol/L (3.4-5.1)
[2021-02-19 09:23] LABS: Free T3, Triiodothyronine Free 3.85 pg/mL (2.77-5.27); Free T4, Direct Thyroxine 1.01 ng/dL (0.78-2.19)
[2021-02-19 09:37] LABS: Thyroid Stimulating Hormone 2.68 uIU/mL (0.47-4.68); Vitamin B12 878 pg/mL (239-931)
== END ==
PROVIDERS: Family Provider Family Medicine; PCP Family Medicine; Referring Provider Family Medicine; Visit Provider Family Medicine
DX: D62 Acute posthemorrhagic anemia (principal); G62.9 Polyneuropathy, unspecified; Z13.21 Encounter for screening for nutritional disorder
CPT/HCPCS: 36415; 80053; 80061; 82306; 82607; 84439; 84443; 84481; 85025

== ENCOUNTER 2021-04-07 12:45 | Outpatient (RCR) | payer OTHER, SELFPAY ==
--- NOTE | 2021-01-27 15:14 | PT.OIE ---
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 Rosacea (~2018) (spontaneous vaginal delivery) (~2016) UTI (urinary tract infection) Past Surgical History (Last Reviewed 10/09/20 @ 18:00 by Helen Yuan MD) H/O wisdom tooth extraction (~2002) History of excision of pilonidal cyst (~2006) S/P lumpectomy, left breast (~2004) Visit Care Team Role Provider Type Gómez Reyez DO Family Provider Physician Primary Care Provider Specialty: Family Practice Address: [address] [place] [address] Email: Helen Yuan MD Attending Provider Physician Referring Provider Specialty: DIGITAL MANAGER Address: [address] [place] [address] Email: Physical Therapy Initial Evaluation PT-OP-A Visit Information Start: 01/27/21 07:29 Freq: Status: Active Protocol: Document 01/27/21 14:30 AMB (Rec: 01/27/21 16:01 AMB [email or web address]) Out-Patient Physical Therapy Visit Information Visit Information Visit Type Initial Evaluation Visit Start Time 14:30 Visit Stop Time 15:15 Total Visit Minutes 45 Visit Number 1 PT-OP-B Current Condition Start: 01/27/21 07:29 Freq: Status: Active Protocol: Document 01/27/21 14:34 AMB (Rec: 01/27/21 14:44 AMB [id number]) Current Condition History of Current Condition Onset Date 4 years ago Current Complaints Pelvic heaviness/weakness History of Current Condition Zack attends pelvic floor therapy after the of her second child. 2nd baby recently born, with traumatic first (forceps, 3rd degree tear, hemorhagge), feels week overall. Feels a bit of heaviness and fatigue. 3 months post , nursing, did have a second degree tear with this . Pelvic floor feels fatigued. Urgency , but denies incontinence. Did have a bit of fecal incontinence after first , but none after this . Denies painful intercourse. Prior Treatments and Tests Was evaluated in [place] after first and didn't need surgery but was also not sent to pelvic floor PT Treatment Goals Patient/Caregiver Goals Like to be able to run 3-4 miles again. Prior Functional Status Baseline Function- ADL's Independent Baseline Function- Mobility Independent Current Functional Impairments (Reported) Functional Limitations- ADL's Has not returned to running Personal Factors Other Personal Factors That May Effect is in the [place] and not Therapy/Recovery home currently, has a 4 year old and 4 month old PT-OP-I Pelvic Floor Start: 01/27/21 07:29 Freq: Status: Active Protocol: Document 01/27/21 14:30 AMB (Rec: 01/27/21 16:01 AMB [email or web address]) Pelvic Floor Assessment Urine Pelvic Floor Surgery No Urinary Symptoms Urge Sensation,Falling Out Feeling/Heavy Other Leakage Causes denies leaks Voiding Frequency 1-2 hrs Pelvic Clock Pelvic Clock Other scar at perineum- no tenderness with palpation. Diastasis recti 3 finger width above umbilical, 2 finger width below Prolapse Rectocele Grade 2 Perineal Descent Resting Absent Bearing Present Contraction Ability Voluntary Contraction Moderate Voluntary Relaxation Absent Manual Muscle Testing Left 3 Manual Muscle Testing Right 3 Manual Muscle Testing Anterior 2 Manual Muscle Testing Posterior 3 Muscle Endurance (Seconds) 5 Number of Quick Contractions In 10 4 Seconds PT-OP-T Assessment and Plan Start: 01/27/21 07:29 Freq: Status: Active Protocol: Document 01/27/21 14:30 AMB (Rec: 01/27/21 16:01 AMB [email or web address]) Physical Therapy Assessment Rehab Potential Rehabilitation Potential Good Evaluation Complexity Number of Personal Factors/Comorbidities 1-2 Number of Body Systems Impaired 1-2 Clinical Presentation at Evaluation Stable Impairments Impairments Strength Goals Three Impairment Return to function Short Term Goal (STG) Zack will lift 20 pounds from the floor to waist height while maintaing a pelvic floor contraction. STG Duration 4 weeks Feather Separator Goal (LTG) Zack will run for 1 mile without pelvic floor or core weakness. LTG Duration 8 weeks Two Impairment Diastasis recti Short Term Goal (STG) Zack will be independent and consistent with a HEP for her pelvic floor and transversus abdominus. STG Duration 4 weeks One Impairment Pelvic floor strength Short Term Goal (STG) Zack will maintain her pelvic floor strength for 10 seconds while in standing. STG Duration 4 weeks Assessment Summary Assessment Zack attends physical therapy with pelvic floor weakness and diastasis recti after the vaginal delivery of her second child. While this delivery was less traumatic than her first, she did not have pelvic PT after her first delivery. She denies specific incontinence but she does have mild prolapse and with her goal of return to running would benefit from pelvic PT to improve her ability to contract her pelvic floor and deep core musculature so that she can return to full function without her current symptoms of pelvic heaviness and weakness. Physical Therapy Plan Frequency and Duration Frequency of Treatment 1x/Week Duration of Treatment 10 weeks Plan of Care Start Date 01/27/21 Plan of Care End Date 04/07/21 Therapeutic Interventions Therapeutic Interventions Home Exercise Program,Manual Therapy,Neuromuscular Re- education,Self-Care/Home Management,Soft Tissue Mobilization,Therapeutic Activities,Therapeutic Exercises Modalities Biofeedback,Electric Stimulation Next Visit Focus/Plan Next Note Type Treatment Note Next Visit Plan Begin with supine/quadruped pelvic floor and quadruped with focus on 10 second hold, can try biofeedback.
--- NOTE | 2021-01-27 15:15 | PT.OPPOC ---
Physical, Occupational & Speech Therapy At [facility] Current Diagnoses Other specified disorders of muscle (01/27/21) Encounter for routine follow-up (01/27/21) Visit Care Team Role Provider Type Gómez Reyez DO Family Provider Physician Primary Care Provider Specialty: Family Practice Address: [address] [place] [address], [id number] Email: Helen Yuan MD Attending Provider Physician Referring Provider Specialty: ORACLE ARCHITECT Address: [address] [place] [address], [id number] Email: Plan Of Care PT-OP-T Assessment and Plan Start: 01/27/21 07:29 Freq: Status: Active Protocol: Document 01/27/21 14:30 AMB (Rec: 01/27/21 16:01 AMB [email or web address]) Physical Therapy Assessment Rehab Potential Rehabilitation Potential Good Evaluation Complexity Number of Personal Factors/Comorbidities 1-2 Number of Body Systems Impaired 1-2 Clinical Presentation at Evaluation Stable Impairments Impairments Strength Goals Three Impairment Return to function Short Term Goal (STG) Zack will lift 20 pounds from the floor to waist height while maintaing a pelvic floor contraction. STG Duration 4 weeks Senior Living Goal (LTG) Zack will run for 1 mile without pelvic floor or core weakness. LTG Duration 8 weeks Two Impairment Diastasis recti Short Term Goal (STG) Zack will be independent and consistent with a HEP for her pelvic floor and transversus abdominus. STG Duration 4 weeks One Impairment Pelvic floor strength Short Term Goal (STG) Zack will maintain her pelvic floor strength for 10 seconds while in standing. STG Duration 4 weeks Assessment Summary Assessment Zack attends physical therapy with pelvic floor weakness and diastasis recti after the vaginal delivery of her second child. While this delivery was less traumatic than her first, she did not have pelvic PT after her first delivery. She denies specific incontinence but she does have mild prolapse and with her goal of return to running would benefit from pelvic PT to improve her ability to contract her pelvic floor and deep core musculature so that she can return to full function without her current symptoms of pelvic heaviness and weakness. Physical Therapy Plan Frequency and Duration Frequency of Treatment 1x/Week Duration of Treatment 10 weeks Plan of Care Start Date 01/27/21 Plan of Care End Date 04/07/21 Therapeutic Interventions Therapeutic Interventions Home Exercise Program,Manual Therapy,Neuromuscular Re- education,Self-Care/Home Management,Soft Tissue Mobilization,Therapeutic Activities,Therapeutic Exercises Modalities Biofeedback,Electric Stimulation Next Visit Focus/Plan Next Note Type Treatment Note Next Visit Plan Begin with supine/quadruped pelvic floor and quadruped with focus on 10 second hold, can try biofeedback. Plan of Care Dates Plan of Care Start Date 01/27/21 Plan of Care End Date 04/07/21 Electronically Signed by: Marija Mcmahon, PT 01/28/21 0281 Please Sign and Return: I have reviewed this Plan of Care and certify that the skilled therapy services above are required to meet the patient?s needs. Physician Signature Date Printed Name and Credentials Clinical Instructor Signature Printed Name and Credentials
--- NOTE | 2021-02-16 16:07 | PT.OTN ---
Current Diagnoses Other specified disorders of muscle (02/13/21) Encounter for routine follow-up (02/13/21) Physical Therapy Treatment Note PT-OP-A Visit Information Start: 01/27/21 07:29 Freq: Status: Active Protocol: Document 02/13/21 13:30 AMB (Rec: 02/13/21 14:16 AMB [id number]) Out-Patient Physical Therapy Visit Information Visit Information Visit Type Treatment Note Visit Start Time 13:30 Visit Stop Time 14:15 Total Visit Minutes 45 Visit Number 2 PT-OP-B Current Condition Start: 01/27/21 07:29 Freq: Status: Active Protocol: Document 01/27/21 14:34 AMB (Rec: 01/27/21 14:44 AMB [id number]) Current Condition History of Current Condition Onset Date 4 years ago Current Complaints Pelvic heaviness/weakness History of Current Condition Zack attends pelvic floor therapy after the of her second child. 2nd baby recently born, with traumatic first (forceps, 3rd degree tear, hemorhagge), feels week overall. Feels a bit of heaviness and fatigue. 3 months post , nursing, did have a second degree tear with this . Pelvic floor feels fatigued. Urgency , but denies incontinence. Did have a bit of fecal incontinence after first , but none after this . Denies painful intercourse. Prior Treatments and Tests Was evaluated in [place] after first and didn't need surgery but was also not sent to pelvic floor PT Treatment Goals Patient/Caregiver Goals Like to be able to run 3-4 miles again. Prior Functional Status Baseline Function- ADL's Independent Baseline Function- Mobility Independent Current Functional Impairments (Reported) Functional Limitations- ADL's Has not returned to running Personal Factors Other Personal Factors That May Effect is in the [place] and not Therapy/Recovery home currently, has a 4 year old and 4 month old PT-OP-C Subjective Start: 01/27/21 07:29 Freq: Status: Active Protocol: Document 02/13/21 13:30 AMB (Rec: 02/13/21 14:16 AMB [id number]) OP-PT Subjective Patient Comments Patient Comments Pt has been doing exercises, seated and lying down, trying to be mindful of pelvic floor while brushing teeth. PT-OP-I Pelvic Floor Start: 01/27/21 07:29 Freq: Status: Active Protocol: Document 01/27/21 14:30 AMB (Rec: 01/27/21 16:01 AMB [email or web address]) Pelvic Floor Assessment Urine Pelvic Floor Surgery No Urinary Symptoms Urge Sensation,Falling Out Feeling/Heavy Other Leakage Causes denies leaks Voiding Frequency 1-2 hrs Pelvic Clock Pelvic Clock Other scar at perineum- no tenderness with palpation. Diastasis recti 3 finger width above umbilical, 2 finger width below Prolapse Rectocele Grade 2 Perineal Descent Resting Absent Bearing Present Contraction Ability Voluntary Contraction Moderate Voluntary Relaxation Absent Manual Muscle Testing Left 3 Manual Muscle Testing Right 3 Manual Muscle Testing Anterior 2 Manual Muscle Testing Posterior 3 Muscle Endurance (Seconds) 5 Number of Quick Contractions In 10 4 Seconds PT-OP-Q Treatments Start: 01/27/21 07:29 Freq: Status: Active Protocol: Document 02/13/21 13:30 AMB (Rec: 02/13/21 14:16 AMB [id number]) Therapeutic Exercises Supine Exercises 1 Supine Exercise Name roll in roll out Reps/Minutes #2 t band Comments 10 ea- easier in supine Sitting Exercises 1 Sitting Exercise Name roll in roll out Comments more challenging pt tends to Other Exercises 1 Other Exercise Name quadruped UE flex with TA and pelvic floor Reps/Minutes 2x10 PT-OP-T Assessment and Plan Start: 01/27/21 07:29 Freq: Status: Active Protocol: Document 02/13/21 13:30 AMB (Rec: 02/13/21 14:16 AMB [id number]) Physical Therapy Assessment Assessment Summary Assessment Pt did well with exercise today, but does fatigue with multiple reps of exercises. Did benefit from lumbar stretching and could consider more TA strengthening given diastasis. Physical Therapy Plan Next Visit Focus/Plan Next Note Type Treatment Note Next Visit Plan Begin with supine/quadruped pelvic floor and quadruped with focus on 10 second hold, can try biofeedback.
--- NOTE | 2021-03-04 15:27 | PT.OTN ---
Current Diagnoses Other specified disorders of muscle (03/04/21) Encounter for routine follow-up (03/04/21) Physical Therapy Treatment Note PT-OP-A Visit Information Start: 01/27/21 07:29 Freq: Status: Active Protocol: Document 03/04/21 14:15 AMB (Rec: 03/04/21 15:27 AMB [id number]) Out-Patient Physical Therapy Visit Information Visit Information Visit Type Treatment Note Visit Start Time 14:15 Visit Stop Time 15:00 Total Visit Minutes 45 Visit Number 3 PT-OP-B Current Condition Start: 01/27/21 07:29 Freq: Status: Active Protocol: Document 01/27/21 14:34 AMB (Rec: 01/27/21 14:44 AMB [id number]) Current Condition History of Current Condition Onset Date 4 years ago Current Complaints Pelvic heaviness/weakness History of Current Condition Zack attends pelvic floor therapy after the of her second child. 2nd baby recently born, with traumatic first (forceps, 3rd degree tear, hemorhagge), feels week overall. Feels a bit of heaviness and fatigue. 3 months post , nursing, did have a second degree tear with this . Pelvic floor feels fatigued. Urgency , but denies incontinence. Did have a bit of fecal incontinence after first , but none after this . Denies painful intercourse. Prior Treatments and Tests Was evaluated in [place] after first and didn't need surgery but was also not sent to pelvic floor PT Treatment Goals Patient/Caregiver Goals Like to be able to run 3-4 miles again. Prior Functional Status Baseline Function- ADL's Independent Baseline Function- Mobility Independent Current Functional Impairments (Reported) Functional Limitations- ADL's Has not returned to running Personal Factors Other Personal Factors That May Effect is in the [place] and not Therapy/Recovery home currently, has a 4 year old and 4 month old PT-OP-C Subjective Start: 01/27/21 07:29 Freq: Status: Active Protocol: Document 03/04/21 14:15 AMB (Rec: 03/04/21 15:27 AMB [id number]) OP-PT Subjective Patient Comments Patient Comments Pt was sore after last appt in her abs. Is continuing to notice SI pain that started before , but still feels really stiff. PT-OP-I Pelvic Floor Start: 01/27/21 07:29 Freq: Status: Active Protocol: Document 01/27/21 14:30 AMB (Rec: 01/27/21 16:01 AMB [email or web address]) Pelvic Floor Assessment Urine Pelvic Floor Surgery No Urinary Symptoms Urge Sensation,Falling Out Feeling/Heavy Other Leakage Causes denies leaks Voiding Frequency 1-2 hrs Pelvic Clock Pelvic Clock Other scar at perineum- no tenderness with palpation. Diastasis recti 3 finger width above umbilical, 2 finger width below Prolapse Rectocele Grade 2 Perineal Descent Resting Absent Bearing Present Contraction Ability Voluntary Contraction Moderate Voluntary Relaxation Absent Manual Muscle Testing Left 3 Manual Muscle Testing Right 3 Manual Muscle Testing Anterior 2 Manual Muscle Testing Posterior 3 Muscle Endurance (Seconds) 5 Number of Quick Contractions In 10 4 Seconds PT-OP-Q Treatments Start: 01/27/21 07:29 Freq: Status: Active Protocol: Document 03/04/21 14:15 AMB (Rec: 03/04/21 15:27 AMB [id number]) Therapeutic Exercises Supine Exercises 4 Supine Exercise Name table top tap down Reps/Minutes 2x10 3 Supine Exercise Name SLR Reps/Minutes 2x10 2 Supine Exercise Name bridge- on 55cm ball Reps/Minutes 10 Other Exercises 1 Other Exercise Name quadruped UE flex with TA and pelvic floor Reps/Minutes 2x10 PT-OP-T Assessment and Plan Start: 01/27/21 07:29 Freq: Status: Active Protocol: Document 03/04/21 14:15 AMB (Rec: 03/04/21 15:27 AMB [id number]) Physical Therapy Assessment Assessment Summary Assessment Back/SI stiffness continues to be an issue. Progress pelvic floor and TA stabilization, did describe SI taping if pt finds that helfpul. Physical Therapy Plan Next Visit Focus/Plan Next Note Type Treatment Note Next Visit Plan Progress stabilization, can work into standing as tolerated.
--- NOTE | 2021-03-16 16:05 | PT.OTN ---
Current Diagnoses Other specified disorders of muscle (03/16/21) Encounter for routine follow-up (03/16/21) Physical Therapy Treatment Note PT-OP-A Visit Information Start: 01/27/21 07:29 Freq: Status: Active Protocol: Document 03/16/21 10:30 AMB (Rec: 03/16/21 11:17 AMB [id number]) Out-Patient Physical Therapy Visit Information Visit Information Visit Type Treatment Note Visit Start Time 10:30 Visit Stop Time 11:15 Total Visit Minutes 45 Visit Number 4 PT-OP-B Current Condition Start: 01/27/21 07:29 Freq: Status: Active Protocol: Document 01/27/21 14:34 AMB (Rec: 01/27/21 14:44 AMB [id number]) Current Condition History of Current Condition Onset Date 4 years ago Current Complaints Pelvic heaviness/weakness History of Current Condition Zack attends pelvic floor therapy after the of her second child. 2nd baby recently born, with traumatic first (forceps, 3rd degree tear, hemorhagge), feels week overall. Feels a bit of heaviness and fatigue. 3 months post , nursing, did have a second degree tear with this . Pelvic floor feels fatigued. Urgency , but denies incontinence. Did have a bit of fecal incontinence after first , but none after this . Denies painful intercourse. Prior Treatments and Tests Was evaluated in [place] after first and didn't need surgery but was also not sent to pelvic floor PT Treatment Goals Patient/Caregiver Goals Like to be able to run 3-4 miles again. Prior Functional Status Baseline Function- ADL's Independent Baseline Function- Mobility Independent Current Functional Impairments (Reported) Functional Limitations- ADL's Has not returned to running Personal Factors Other Personal Factors That May Effect is in the [place] and not Therapy/Recovery home currently, has a 4 year old and 4 month old PT-OP-C Subjective Start: 01/27/21 07:29 Freq: Status: Active Protocol: Document 03/16/21 10:30 AMB (Rec: 03/16/21 11:17 AMB [id number]) OP-PT Subjective Patient Comments Patient Comments Pt hasn't been doing a lot of exercises since last visit, but has been going on walks with the double Jer stroller. PT-OP-I Pelvic Floor Start: 01/27/21 07:29 Freq: Status: Active Protocol: Document 01/27/21 14:30 AMB (Rec: 01/27/21 16:01 AMB [id number]) Pelvic Floor Assessment Urine Pelvic Floor Surgery No Urinary Symptoms Urge Sensation,Falling Out Feeling/Heavy Other Leakage Causes denies leaks Voiding Frequency 1-2 hrs Pelvic Clock Pelvic Clock Other scar at perineum- no tenderness with palpation. Diastasis recti 3 finger width above umbilical, 2 finger width below Prolapse Rectocele Grade 2 Perineal Descent Resting Absent Bearing Present Contraction Ability Voluntary Contraction Moderate Voluntary Relaxation Absent Manual Muscle Testing Left 3 Manual Muscle Testing Right 3 Manual Muscle Testing Anterior 2 Manual Muscle Testing Posterior 3 Muscle Endurance (Seconds) 5 Number of Quick Contractions In 10 4 Seconds PT-OP-Q Treatments Start: 01/27/21 07:29 Freq: Status: Active Protocol: Document 03/16/21 10:30 AMB (Rec: 03/16/21 11:17 AMB [id number]) Therapeutic Exercises Standing Exercises 3 Standing Exercise Name lunges-forward Comments with TA and pelvic floor 2 Standing Exercise Name sit to stands Reps/Minutes 10 1 Standing Exercise Name pelvic floor and TA Reps/Minutes 10 Manual Therapy Treatment Taping 1 Body Location abdomen Treatment Focus diastasis Type of Tape Kinesio Tape Comments 4 Is in herringbone pattern PT-OP-T Assessment and Plan Start: 01/27/21 07:29 Freq: Status: Active Protocol: Document 03/16/21 10:30 AMB (Rec: 03/16/21 11:17 AMB [id number]) Physical Therapy Assessment Assessment Summary Assessment Zack has a tendency to over utilize her back, encouraged posterior pelvic tilt in standing to try to reduce over use of lumbar. Educated in kinesiotape for diastasis because TA felt weaker than pelvic floor. Physical Therapy Plan Next Visit Focus/Plan Next Note Type Treatment Note Next Visit Plan Progress stabilization, can work into standing as tolerated.
--- NOTE | 2021-04-08 10:06 | PT.OTN ---
Current Diagnoses Other specified disorders of muscle (04/07/21) Encounter for routine follow-up (04/07/21) Physical Therapy Treatment Note PT-OP-A Visit Information Start: 01/27/21 07:29 Freq: Status: Active Protocol: Document 04/07/21 12:45 AMB (Rec: 04/07/21 13:01 AMB [id number]) Out-Patient Physical Therapy Visit Information Visit Information Visit Type Treatment Note Visit Start Time 12:45 Visit Stop Time 13:00 Total Visit Minutes 45 Visit Number 5 PT-OP-B Current Condition Start: 01/27/21 07:29 Freq: Status: Active Protocol: Document 01/27/21 14:34 AMB (Rec: 01/27/21 14:44 AMB [id number]) Current Condition History of Current Condition Onset Date 4 years ago Current Complaints Pelvic heaviness/weakness History of Current Condition Zcak attends pelvic floor therapy after the of her second child. 2nd baby recently born, with traumatic first (forceps, 3rd degree tear, hemorhagge), feels week overall. Feels a bit of heaviness and fatigue. 3 months post , nursing, did have a second degree tear with this . Pelvic floor feels fatigued. Urgency , but denies incontinence. Did have a bit of fecal incontinence after first , but none after this . Denies painful intercourse. Prior Treatments and Tests Was evaluated in [place] after first and didn't need surgery but was also not sent to pelvic floor PT Treatment Goals Patient/Caregiver Goals Like to be able to run 3-4 miles again. Prior Functional Status Baseline Function- ADL's Independent Baseline Function- Mobility Independent Current Functional Impairments (Reported) Functional Limitations- ADL's Has not returned to running Personal Factors Other Personal Factors That May Effect is in the [place] and not Therapy/Recovery home currently, has a 4 year old and 4 month old PT-OP-C Subjective Start: 01/27/21 07:29 Freq: Status: Active Protocol: Document 04/07/21 12:45 AMB (Rec: 04/07/21 13:01 AMB [id number]) OP-PT Subjective Patient Comments Patient Comments Pt has been exercising more working on pilates and barre. PT-OP-I Pelvic Floor Start: 01/27/21 07:29 Freq: Status: Active Protocol: Document 01/27/21 14:30 AMB (Rec: 01/27/21 16:01 AMB [id number]) Pelvic Floor Assessment Urine Pelvic Floor Surgery No Urinary Symptoms Urge Sensation,Falling Out Feeling/Heavy Other Leakage Causes denies leaks Voiding Frequency 1-2 hrs Pelvic Clock Pelvic Clock Other scar at perineum- no tenderness with palpation. Diastasis recti 3 finger width above umbilical, 2 finger width below Prolapse Rectocele Grade 2 Perineal Descent Resting Absent Bearing Present Contraction Ability Voluntary Contraction Moderate Voluntary Relaxation Absent Manual Muscle Testing Left 3 Manual Muscle Testing Right 3 Manual Muscle Testing Anterior 2 Manual Muscle Testing Posterior 3 Muscle Endurance (Seconds) 5 Number of Quick Contractions In 10 4 Seconds PT-OP-Q Treatments Start: 01/27/21 07:29 Freq: Status: Active Protocol: Document 04/07/21 12:45 AMB (Rec: 04/07/21 13:21 AMB [id number]) Therapeutic Exercises Supine Exercises 4 Supine Exercise Name table top tap down Reps/Minutes 2x10 3 Supine Exercise Name SLR Reps/Minutes 2x10 Standing Exercises 4 Standing Exercise Name lift training Resistance 10# Reps/Minutes 2x10 Comments waist to chest height with TA and PF 3 Standing Exercise Name lunges-forward Comments with TA and pelvic floor 2 Standing Exercise Name sit to stands Reps/Minutes 10 1 Standing Exercise Name pelvic floor and TA Reps/Minutes 10 PT-OP-T Assessment and Plan Start: 01/27/21 07:29 Freq: Status: Active Protocol: Document 04/07/21 12:45 AMB (Rec: 04/07/21 13:01 AMB [id number]) Physical Therapy Assessment Goals Three Impairment Return to function Short Term Goal (STG) Zack will lift 20 pounds from the floor to waist height while maintaing a pelvic floor contraction. STG Duration 4 weeks Farm Adviser Goal (LTG) Zack will run for 1 mile without pelvic floor or core weakness. LTG Duration 8 weeks Two Impairment Diastasis recti Short Term Goal (STG) Zack will be independent and consistent with a HEP for her pelvic floor and transversus abdominus. STG Duration 4 weeks One Impairment Pelvic floor strength Short Term Goal (STG) Zack will maintain her pelvic floor strength for 10 seconds while in standing. STG Duration MET Assessment Summary Assessment Zack has been progressing her exercises appropriately at home, did encourage her that we should start consider progressing cardio, avoid extensive ab workouts due to diastasis. Diastasis is improving 2 finger widths above, 1.5 below now, but would like to be better before doing sit ups, etc.
--- NOTE | 2021-05-21 08:08 | PT.OPDS ---
Current Diagnoses Other specified disorders of muscle (04/07/21) Encounter for routine follow-up (04/07/21) Visit Care Team Role Provider Type Gómez Reyez DO Family Provider Physician Primary Care Provider Specialty: Family Practice Address: [address] [place] [address], [id number] Email: Helen Yuan MD Attending Provider Physician Referring Provider Specialty: DECORATING INSPECTOR Address: [address] [place] [address], [address] Email: Visit Number Visit Number 5 Discharge Summary PT-OP-B Current Condition Start: 01/27/21 07:29 Freq: Status: Active Protocol: Document 01/27/21 14:34 AMB (Rec: 01/27/21 14:44 AMB [id number]) Current Condition History of Current Condition Onset Date 4 years ago Current Complaints Pelvic heaviness/weakness History of Current Condition Zack attends pelvic floor therapy after the of her second child. 2nd baby recently born, with traumatic first (forceps, 3rd degree tear, hemorhagge), feels week overall. Feels a bit of heaviness and fatigue. 3 months post , nursing, did have a second degree tear with this . Pelvic floor feels fatigued. Urgency , but denies incontinence. Did have a bit of fecal incontinence after first , but none after this . Denies painful intercourse. Prior Treatments and Tests Was evaluated in [place] after first and didn't need surgery but was also not sent to pelvic floor PT Treatment Goals Patient/Caregiver Goals Like to be able to run 3-4 miles again. Prior Functional Status Baseline Function- ADL's Independent Baseline Function- Mobility Independent Current Functional Impairments (Reported) Functional Limitations- ADL's Has not returned to running Personal Factors Other Personal Factors That May Effect is in the [place] and not Therapy/Recovery home currently, has a 4 year old and 4 month old PT-OP-C Subjective Start: 01/27/21 07:29 Freq: Status: Active Protocol: Document 04/07/21 12:45 AMB (Rec: 04/07/21 13:01 AMB [id number]) OP-PT Subjective Patient Comments Patient Comments Pt has been exercising more working on pilates and barre. PT-OP-I Pelvic Floor Start: 01/27/21 07:29 Freq: Status: Active Protocol: Document 01/27/21 14:30 AMB (Rec: 01/27/21 16:01 AMB [email or web address]) Pelvic Floor Assessment Urine Pelvic Floor Surgery No Urinary Symptoms Urge Sensation,Falling Out Feeling/Heavy Other Leakage Causes denies leaks Voiding Frequency 1-2 hrs Pelvic Clock Pelvic Clock Other scar at perineum- no tenderness with palpation. Diastasis recti 3 finger width above umbilical, 2 finger width below Prolapse Rectocele Grade 2 Perineal Descent Resting Absent Bearing Present Contraction Ability Voluntary Contraction Moderate Voluntary Relaxation Absent Manual Muscle Testing Left 3 Manual Muscle Testing Right 3 Manual Muscle Testing Anterior 2 Manual Muscle Testing Posterior 3 Muscle Endurance (Seconds) 5 Number of Quick Contractions In 10 4 Seconds PT-OP-T Assessment and Plan Start: 01/27/21 07:29 Freq: Status: Active Protocol: Document 05/21/21 08:04 AMB (Rec: 05/21/21 08:08 AMB [id number]) Physical Therapy Assessment Goals Three Impairment Return to function Short Term Goal (STG) Zack will lift 20 pounds from the floor to waist height while maintaing a pelvic floor contraction. STG Duration NOT MET Registry Nurse Goal (LTG) Zack will run for 1 mile without pelvic floor or core weakness. LTG Duration NOT MET Two Impairment Diastasis recti Short Term Goal (STG) Zack will be independent and consistent with a HEP for her pelvic floor and transversus abdominus. STG Duration MET One Impairment Pelvic floor strength Short Term Goal (STG) Zack will maintain her pelvic floor strength for 10 seconds while in standing. STG Duration MET Assessment Summary Assessment Zack has been appropriately progressing her exercises at home. She is going back to work so requests discharge due to feeling overwhelmed with childcare and work and not wanting appointments on top of it. She had met half of her goals in the 5 appointments she was seen for. Physical Therapy Plan Discharge Physical Therapy Discharge Reasons Patient Request
== END 2021-05-21 13:28 | disposition home or self-care (01) ==
LOC: PHYS 12:45
PROVIDERS: Family Provider Family Medicine; PCP Family Medicine; Referring Provider Obstetrics & Gynecology; Visit Provider Obstetrics & Gynecology
DX: M62.89 Other specified disorders of muscle (principal); Z39.2 Encounter for routine postpartum follow-up
CPT/HCPCS: 97110; 97161

== ENCOUNTER → 2022-10-21 12:21 | Outpatient (CLI) | payer OTHER, SELFPAY ==
--- NOTE | 2022-10-21 12:23 | DI.MG.S_ITS ---
BILATERAL DIGITAL SCREENING MAMMOGRAM 3D/2D WITH CAD: 10/21/2022 CLINICAL: Baseline exam. Routine screening. No prior exams were available for comparison. Both breasts are extremely dense, which lowers the sensitivity of mammography (category d />75% glandular tissue). Current study was also evaluated with a Computer Aided Detection (CAD) system. No significant masses, calcifications, or other findings are seen in either breast. IMPRESSION: NEGATIVE There is no mammographic evidence of malignancy. A 1 year screening mammogram is recommended. Please note patient's elevated lifetime risk and consider MRI screening in addition. Based on Tyrer-Cuzick model (a risk assessment model), the patient's lifetime risk is 22.8% and her 10 year risk is 3.0%. If a patient has an elevated risk, a more comprehensive evaluation should be considered and/or a referral to a genetic counselor. The [employer] [place] [employer], [employer], and NCCN Guidelines advise the consideration of Breast MRI as an adjunct to screening mammography in patients whose Lifetime risk to develop breast cancer is 20% or higher. This exam was interpreted at Station ID: [id number]. NOTE: For mammograms, a report in lay terms will be sent to the patient. Approximately 15% of breast malignancies will not be visualized mammographically. In the management of a palpable breast mass, a negative mammogram must not discourage biopsy of a clinically suspicious lesion. Electronically Signed By: Carlito Best M.D. lc/:10/21/2022 13:07:09 letter sent: Normal Exam ACR BI-RADS Category 1: Negative [id number]
== END ==
PROVIDERS: Family Provider Family Medicine; PCP Family Medicine; Referring Provider Family Medicine; Visit Provider Family Medicine
DX: Z12.31 Encounter for screening mammogram for malignant neoplasm of breast (principal)
CPT/HCPCS: 77063; 77067

== ENCOUNTER → 2022-11-29 11:58 | Outpatient (CLI) | payer OTHER, SELFPAY ==
--- NOTE | 2022-11-29 12:00 | DI.MG.S_ITS ---
UNILATERAL RIGHT DIGITAL DIAGNOSTIC MAMMOGRAM 3D/2D: 11/29/2022 CLINICAL: Breast lump. Comparison is made to exam dated: 10/21/2022 mammogram - [facility]. The right breast is extremely dense, which lowers the sensitivity of mammography (category d />75% glandular tissue). No significant masses, calcifications, or other findings are seen in the breast. IMPRESSION: INCOMPLETE: NEEDS ADDITIONAL IMAGING EVALUATION There is no abnormality seen in the right breast to correspond with the area of clinical concern and palpable abnormality indicated by triangular marker in the upper outer quadrant, however, an ultrasound is recommended for further evaluation and is scheduled to immediately follow this examination. Based on Tyrer-Cuzick model (a risk assessment model), the patient's lifetime risk is 22.8% and her 10 year risk is 3.0%. If a patient has an elevated risk, a more comprehensive evaluation should be considered and/or a referral to a genetic counselor. The [place] [employer], [employer], and NCCN Guidelines advise the consideration of Breast MRI as an adjunct to screening mammography in patients whose Lifetime risk to develop breast cancer is 20% or higher. This exam was interpreted at Station ID: [id number]. NOTE: For mammograms, a report in lay terms will be sent to the patient. Approximately 15% of breast malignancies will not be visualized mammographically. In the management of a palpable breast mass, a negative mammogram must not discourage biopsy of a clinically suspicious lesion. Electronically Signed By: Warern Cole M.D. aty/:11/29/2022 12:39:45 ACR BI-RADS Category 0: Incomplete 3340F
--- NOTE | 2022-11-29 12:00 | DI.US.S_ITS ---
ULTRASOUND OF RIGHT BREAST: 11/29/2022 CLINICAL: Palpable area right breast. Comparison is made to exams dated: 11/29/2022 mammogram and 10/21/2022 mammogram - [facility]. Real-time ultrasound of the right breast was performed. Anna scale images of the real-time examination were reviewed. No significant abnormalities were seen sonographically in the right breast. IMPRESSION: NEGATIVE There is no sonographic evidence of malignancy. There is no definite sonographic abnormality seen in the right breast to correspond with the area of clinical concern and palpable abnormality at 10 o'clock which likely represent normal fibroglandular tissue, however, recommend clinical follow up for persistent or worsening symptoms, or development of any clinically suspicious findings. Additionally, patient has an elevated lifetime risk for breast cancer of greater than 20%. Recommend consideration for screening breast MRI as an adjunct to screening mammography. A 1 year screening mammogram is recommended due approximately September 2023. Findings and recommendations were conveyed to the patient during today's evaluation. This exam was interpreted at Station ID: [id number]. Electronically Signed By: Warren Cole M.D. at/:11/29/2022 13:19:30 letter sent: Clinical Evaluation Ultrasound BI-RADS: 1 Negative
== END ==
PROVIDERS: Family Provider Family Medicine; PCP Family Medicine; Referring Provider Family Medicine; Visit Provider Family Medicine
DX: N63.11 Unspecified lump in the right breast, upper outer quadrant (principal); R92.8 Other abnormal and inconclusive findings on diagnostic imaging of breast
CPT/HCPCS: 76642; 77065; G0279

== ENCOUNTER → 2023-03-25 06:57 | Outpatient (CLI) | payer OTHER, SELFPAY ==
--- NOTE | 2023-03-25 06:58 | DI.US.S_ITS ---
PROCEDURE: US PELVIC COMPLETE INDICATIONS: Menorrhagia TECHNIQUE: Real-time scanning was performed of the pelvic organs, with image documentation. Additional endovaginal scanning was necessary due to incomplete visualization of the adnexal and endometrial structures by transabdominal scanning. COMPARISON: [facility], US, US PELVIC COMPLETE, 12/04/2019, 10:15. FINDINGS: Uterus: Uterus is retroverted and normal in size at 6.9 x 4.4 x 6.7 cm. The myometrium is homogeneous. The endometrium measures 6 mm combined thickness. Ovaries: The right ovary measures 3.8 x 1.7 x 1.2 cm, with a calculated ovarian volume of 4 cc. The left ovary measures 0.8 x 0.6 x 1.5 cm, with a calculated ovarian volume of 1 cc. The ovaries have a normal sonographic appearance. Are right-sided hemorrhagic corpus luteum. Less than 12 follicles can be seen in each ovary. No adnexal masses are seen. Other: No pathologic free abdominal or pelvic fluid. IMPRESSION: Hemorrhagic right-sided corpus luteum. Otherwise unremarkable exam. We strive to produce accurate, complete, and clear reports of imaging services. To assist us in improving patient care, this report was composed using standard report templates and voice recognition software. Therefore, it may contain abnormal punctuation, insertions and/or omissions. Occasional wrong-word or sound-alike substitutions may occur. Though we review the report and make efforts to correct it, we do recommend that the report be read carefully in proper context to recognize any text inaccuracies. Dictated by: Kev Magaña M.D. on 03/25/2023 at 9:58 Approved by: Kev Magaña M.D. on 03/25/2023 at 10:00
== END ==
PROVIDERS: Family Provider Family Medicine; PCP Family Medicine; Referring Provider Obstetrics & Gynecology; Visit Provider Obstetrics & Gynecology
DX: N92.0 Excessive and frequent menstruation with regular cycle (principal); N83.11 Corpus luteum cyst of right ovary; R61 Generalized hyperhidrosis
CPT/HCPCS: 76830; 76856

== ENCOUNTER → 2023-07-28 10:51 | Outpatient (CLI) | payer OTHER, SELFPAY ==
[2023-07-28 15:47] LABS: Follicle Stimulating Hormone 3.37 mIU/mL
== END ==
PROVIDERS: Family Provider Family Medicine; PCP Family Medicine; Referring Provider Obstetrics & Gynecology; Visit Provider Obstetrics & Gynecology
DX: R61 Generalized hyperhidrosis (principal)
CPT/HCPCS: 36415; 83001

== ENCOUNTER → 2023-07-29 10:26 | Outpatient (CLI) | payer OTHER, SELFPAY ==
[2023-07-30 15:10] LABS: Candida species Positive (Negative); Gardnerella vaginalis Negative (Negative); Trichomoas vaginalis Negative (Negative)
== END ==
PROVIDERS: Family Provider Family Medicine; PCP Family Medicine; Visit Provider Obstetrics & Gynecology
DX: N89.8 Other specified noninflammatory disorders of vagina (principal)
CPT/HCPCS: 87480; 87510; 87660

== ENCOUNTER → 2023-12-29 15:14 | Outpatient (CLI) | payer OTHER, SELFPAY ==
[2023-12-29 17:53] LABS: Thyroid Stimulating Hormone 0.992 uIU/mL (0.47-4.68)
[2023-12-29 22:55] LABS: Free T4, Direct Thyroxine 1.11 ng/dL (0.78-2.19)
== END ==
PROVIDERS: Family Provider Family Medicine; PCP Family Medicine; Referring Provider Obstetrics & Gynecology; Visit Provider Obstetrics & Gynecology
DX: R61 Generalized hyperhidrosis (principal)
CPT/HCPCS: 36415; 84439; 84443; 84481

== ENCOUNTER → 2024-02-09 07:45 | Outpatient (CLI) | payer OTHER, SELFPAY ==
--- NOTE | 2024-02-09 07:46 | DI.MG.S_ITS ---
BILATERAL DIGITAL SCREENING MAMMOGRAM 3D/2D WITH CAD: 02/09/2024 CLINICAL: Routine screening. Family history of breast cancer. Comparison is made to exams dated: 11/29/2022 mammogram and 10/21/2022 mammogram - [facility]. Both breasts are extremely dense, which lowers the sensitivity of mammography (category d />75% glandular tissue). Current study was also evaluated with a Computer Aided Detection (CAD) system. There is a new irregular asymmetry in the left breast posterior depth superior region seen on the mediolateral oblique view only. There is architectural distortion associated with the asymmetry. No other significant masses, calcifications, or other findings are seen in either breast. IMPRESSION: INCOMPLETE: NEEDS ADDITIONAL IMAGING EVALUATION The new irregular asymmetry in the left breast is indeterminate. Additional views with possible ultrasound are recommended. Based on Tyrer-Cuzick model (a risk assessment model), the patient's lifetime risk is 22.7% and her 10 year risk is 3.3%. If a patient has an elevated risk, a more comprehensive evaluation should be considered and/or a referral to a genetic counselor. The [place] [employer], [employer], and NCCN Guidelines advise the consideration of Breast MRI as an adjunct to screening mammography in patients whose Lifetime risk to develop breast cancer is 20% or higher. This exam was interpreted at Station ID: [id number]. NOTE: For mammograms, a report in lay terms will be sent to the patient. Approximately 15% of breast malignancies will not be visualized mammographically. In the management of a palpable breast mass, a negative mammogram must not discourage biopsy of a clinically suspicious lesion. Electronically Signed By: Elise kaplan/margarito:02/09/2024 18:29:38 letter sent: Additional Imaging Needed ACR BI-RADS Category 0: Incomplete 3340F
== END ==
LOC: MAMMO 07:45
PROVIDERS: Family Provider Family Medicine; PCP Family Medicine; Referring Provider Family Medicine; Visit Provider Family Medicine
DX: Z12.31 Encounter for screening mammogram for malignant neoplasm of breast (principal); Z80.3 Family history of malignant neoplasm of breast; R92.323 Mammographic fibroglandular density, bilateral breasts
CPT/HCPCS: 77063; 77067

== ENCOUNTER → 2024-02-29 10:13 | Outpatient (CLI) | payer OTHER, SELFPAY ==
--- NOTE | 2024-02-29 10:14 | DI.MG.S_ITS ---
UNILATERAL LEFT DIGITAL DIAGNOSTIC MAMMOGRAM 3D/2D WITH ADDITIONAL VIEWS: 02/29/2024 CLINICAL: Additional evaluation requested from prior study. Comparison is made to exams dated: 02/09/2024 mammogram and 10/21/2022 mammogram - [facility]. The left breast is extremely dense, which lowers the sensitivity of mammography (category d />75% glandular tissue). There is an asymmetry in the left breast posterior depth superior region seen on the mediolateral oblique view only. No other significant masses or calcifications are seen in the breast. IMPRESSION: INCOMPLETE: NEEDS ADDITIONAL IMAGING EVALUATION The asymmetry in the left breast is indeterminate. An ultrasound is recommended. Based on Tyrer-Cuzick model (a risk assessment model), the patient's lifetime risk is 22.7% and her 10 year risk is 3.3%. If a patient has an elevated risk, a more comprehensive evaluation should be considered and/or a referral to a genetic counselor. The [place] [employer], [employer], and NCCN Guidelines advise the consideration of Breast MRI as an adjunct to screening mammography in patients whose Lifetime risk to develop breast cancer is 20% or higher. This exam was interpreted at Station ID: [id number]. NOTE: For mammograms, a report in lay terms will be sent to the patient. Approximately 15% of breast malignancies will not be visualized mammographically. In the management of a palpable breast mass, a negative mammogram must not discourage biopsy of a clinically suspicious lesion. Electronically Signed By: Carlito Best M.D. lc/:02/29/2024 11:48:06 ACR BI-RADS Category 0: Incomplete 3340F
--- NOTE | 2024-02-29 10:15 | DI.US.S_ITS ---
LIMITED ULTRASOUND OF LEFT BREAST: 02/29/2024 CLINICAL: Patient returns today to evaluate an asymmetry in the left breast. Comparison is made to exams dated: 02/29/2024 mammogram, 02/09/2024 mammogram, and 10/21/2022 mammogram - [facility]. Real-time ultrasound of the left breast 11-2 o'clock region was performed. Anna scale images of the real-time examination were reviewed. No significant abnormalities were seen sonographically in the left breast. IMPRESSION: PROBABLY BENIGN There is no abnormality seen in the left breast to correspond with the mammography finding. A follow-up mammogram in 6 months is recommended to demonstrate stability. This exam was interpreted at Station ID: [id number]. Electronically Signed By: Carlito Best M.D. /:02/29/2024 11:49:43 letter sent: Followup Recommended Ultrasound BI-RADS: 3 Probably benign
== END ==
LOC: MAMMO 10:14
PROVIDERS: Family Provider Family Medicine; PCP Family Medicine; Referring Provider Family Medicine; Visit Provider Family Medicine
DX: R92.8 Other abnormal and inconclusive findings on diagnostic imaging of breast (principal); N64.89 Other specified disorders of breast; R92.342 Mammographic extreme density, left breast
CPT/HCPCS: 76642; 77065; G0279

== ENCOUNTER 2024-05-15 12:34 | Emergency (ER) | payer OTHER, SELFPAY ==
[2024-05-15] VITALS (18 sets, daily range): BP systolic 106–120; BP diastolic 53–82; PULSE 59–80; RESP 12–27; TEMP 37.2; O2SAT 97–100; BMI 22.8
--- NOTE | 2024-05-15 12:42 | DI.RAD.S_ITS ---
PROCEDURE: XR CHEST 1V INDICATIONS: chest pain TECHNIQUE: One view of the chest was acquired. COMPARISON: None. FINDINGS: Surgical changes and devices: None. Lungs and pleura: Lungs are clear. No pleural effusions or pneumothorax. Mediastinum: Mediastinal contours appear normal. Heart size is normal. Bones and chest wall: No suspicious bony lesions. Overlying soft tissues appear unremarkable. IMPRESSION: No acute cardiopulmonary abnormality is seen. Dictated by: Kev Magaña M.D. on 05/15/2024 at 15:33 Approved by: Kev Magaña M.D. on 05/15/2024 at 15:33
--- NOTE | 2024-05-15 12:54 | EKG_ITS ---
[address] [address] Test Date: 2024-05-15 Pat Name: Zack Aguillon Department: Room: Gender: Female Heart Surgeon: JHON : 1980 Requested By: Order Number: [id number] Reading MD: Chaim Mendes Measurements Intervals [place] Rate: 70 P: 88 [place]: 164 QRS: 60 QRSD: 114 T: 57 QT: 400 QTc: 432 Interpretive Statements Normal sinus rhythm Incomplete right bundle branch block Electronically Signed On 05-21-2024 9:08:03 PDT by Chaim Mendes
[2024-05-15 13:18] LABS: Add Manual Diff / Slide Review NO; Basophils Absolute Auto 0 /uL (0-100); Basophils Percent Auto 0.8 % (0-2); Eosinophils Absolute Auto 100 /uL (0-450); Eosinophils Percent Auto 1.6 % (2-4); Hematocrit 43.9 % (36-46); Hemoglobin 15.1 g/dL (12.0-16.0); Lymphocytes Absolute Auto 1500 /uL (1100-4500); Lymphocytes Percent Auto 27.2 % (25-40); Mean Corpuscular HGB Conc 34.3 % (30-36); Mean Corpuscular Hemoglobin 33.4 PG (26-34); Mean Corpuscular Volume 97.4 fL (80-100); Monocytes Absolute Auto 400 /uL (0-900); Monocytes Percent Auto 6.8 % (3-14); Neutrophils Absolute Auto 3500 /uL (1500-7000); Neutrophils Percent Auto 63.6 % (50-75); Platelet Count 245 X10^3/uL (150-400); Red Blood Cell Count 4.51 X10^6/uL (4.0-5.2); Red Cell Distribution Width 12.3 % (11.6-14.8); White Blood Cell Count 5.6 X10^3/uL (4.5-11.0)
[2024-05-15 13:24] LABS: Prothrombin Time 11.1 SECONDS (9.4-12.5)
[2024-05-15 13:27] LABS: PTT Partial Thromboplastin Tim 31 SECONDS (25.1-36.5)
[2024-05-15 13:31] LABS: Alanine Aminotransferase 19 IU/L (<35); Albumin 4.7 g/dL (3.5-5.0); Albumin Globulin Ratio 1.6 (1.0-2.8); Alkaline Phosphatase 41 U/L (38-126); Aspartate Aminotransferase 31 IU/L (14-36); BUN Creatinine Ratio 18.8 (6-22); Blood Urea Nitrogen 13 mg/dL (7-17); Calcium 9.2 mg/dL (8.4-10.2); Carbon Dioxide 21 mmol/L (22-32); Chloride 106 mmol/L (98-107); Creatine Kinase 69 U/L (30-135); Estimated Glomerular Filt Rate > 60 mL/min (>60); Globulin 2.9 g/dL (1.7-4.1); Glucose 114 mg/dL (70-100); Lipase 69 U/L (23-300); Magnesium 2.2 mg/dL (1.6-2.3); Potassium 4.1 mmol/L (3.4-5.1); Sodium 138 mmol/L (137-145); Total Protein 7.6 g/dL (6.3-8.2)
[2024-05-15 13:32] LABS: HEMOLYSIS 101 (0-50)
[2024-05-15 13:43] LABS: NT-proBNP (BNP-Adult 18+) 54 pg/mL (<125); Troponin I < 0.012 ng/mL (0.01-0.034)
--- NOTE | 2024-05-15 14:59 | ED.CHESTPAIN ---
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 Pain is not worse with inspiration or changes in position, nor better or worse with food. No nausea or vomiting or diarrhea. No injury trauma new activities. She has not actually had any cough, no subjective fevers. No sore throat ear pain symptoms. Her headache couple of days ago is not present now. Last menstrual period last week was on time and normal. No pain with urination, no flank pain or back pain. Related Data Home Medications Medication Instructions Recorded Confirmed levonorgestrel 21 mcg/24 hours (8 intrauterine 11/18/23 04/26/24 yrs) 52 mg intrauterine device (Mirena) Previous Rx's Medication Instructions Recorded naproxen 500 mg tablet,delayed 500 mg PO BID PRN pain #60 tabs 10/22/21 release Sharps container #1 ea 11/12/22 cyclobenzaprine 10 mg tablet 10 mg PO TID PRN muscle spasm #90 06/27/23 tabs dextroamphetamine-amphetamine ER 5 See Rx Instructions PO DAILY PRN 06/27/23 mg 24hr capsule,extend release ADD #60 caps syringe (disposable) 3 mL #48 ea 10/25/23 Blunt needles #100 ea 11/09/23 mecobalamin (vitamin B12) 10,000 1,000 mcg IM .weekly #1 ea 11/09/23 mcg solution for injection needle (disp) 25 gauge 25 gauge x #100 ea 11/15/23 1 1/2 (BD Regular Bevel [place]) estradiol 0.05 mg/24 hr semiweekly 1 patch transdermal 2XW #24 ea 04/11/24 transdermal patch dextroamphetamine-amphetamine ER 5 See Rx Instructions PO DAILY PRN 04/26/24 mg 24hr capsule,extend release ADD #90 caps epinephrine 0.3 mg/0.3 mL 0.3 mg (0.3 mL) IM Q4H PRN 05/03/24 injection, auto-injector hypersensitivity reaction #2 ea omeprazole 20 mg capsule,delayed 20 mg PO DAILY upper abdominal 05/15/24 release pain 30 days #30 caps Allergies Allergy/AdvReac Type Severity Reaction Status Date / Time gluten [GLUTEN] Allergy Severe Diarrhea Verified 04/26/24 11:28 Review of Systems Review of Systems Narrative: see HPI Patient History Medical History (Updated 05/15/24 @ 18:24 by Phuc Gomes MD) Nut allergy Yeast infection of the skin Estrogen deficiency Heavy period Unexplained night sweats Non-celiac gluten sensitivity Chronic pain 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) Tonsillolith Right leg weakness Stressful life event affecting family ADD (attention deficit disorder) Mother currently breast-feeding Acquired bilateral pes cavus Encounter for vitamin deficiency screening Peripheral neuropathy Rosacea (~2018) Allergies (~2000) Anxiety (~2016) AMA (advanced maternal age) multigravida 35+ Episode of syncope (~2016) Maternal blood transfusion (~2016) UTI (urinary tract infection) Dense breast tissue 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 (spontaneous vaginal delivery) (~2016) Surgical History H/O wisdom tooth extraction (~2002) History of excision of pilonidal cyst (~2006) S/P lumpectomy, left breast (~2004) Family History Mother Rheumatoid arthritis Thyroid cancer TIA (transient ischemic attack) Ocular migraine Age related osteoporosis Thrombosis Pulmonary embolism Hypertension Father Hypertension Grandfather Accident Grandmother Colorectal cancer Squamous cell skin cancer Hypertension Grandfather Myocardial infarction Grandmother Mental health disorder Sister Foot drop Anorexia Sister Numbness in both hands Family/Other Epilepsy Social History marital status: number of children: 1 household members: spouse and children pets and animals: Yes (X 2 dogs and X 1 cat) education level: master's degree occupational status: employed current occupational exposures/hazards: No special mikael needs: No Smoking Status: Never smoker second hand exposure: No alcohol intake: former substance use type: does not use Smoking Status: Never smoker alcohol intake frequency: a few times a week Substance Use Type: does not use Exam Narrative Exam Narrative: GENERAL: Well-developed patient, in mild distress. HEAD: Atraumatic. Normocephalic. EYES: Pupils equal round and reactive. Extraocular motions intact. No scleral icterus. No injection or drainage. ENT: Nose without bleeding, purulent drainage. Throat without erythema, tonsillar hypertrophy or exudate. Airway patent. NECK: Trachea midline. Non tender CARDIOVASCULAR: Regular rate and rhythm without murmurs, gallops, or rubs. RESPIRATORY: Clear to auscultation. Breath sounds equal bilaterally. No wheezes, rales, or rhonchi. GASTROINTESTINAL: Abdomen soft, non-tender, nondistended. EXTREMITIES: No edema or joint tenderness. BACK: Nontender without deformity or crepitance. No flank tenderness. NEURO: AOx3. SKIN: No rash or erythema of visible areas Initial Vital Signs Initial Vital Signs: Vital Signs Temperature 98.9 F 05/15/24 12:36 Pulse Rate 80 05/15/24 12:36 Respiratory Rate 18 05/15/24 12:36 Blood Pressure 110/53 L 05/15/24 12:36 Pulse Oximetry 99 05/15/24 12:36 Oxygen Delivery Method Room Air 05/15/24 12:36 Course Orders Ordered: ED Orders 05/15/24 12:42 XR chest 1V Stat EKG-12 Lead Stat 05/15/24 13:08 Complete Blood Count AUTO DIFF Stat Comprehensive Metabolic Panel Stat Lipase Stat Magnesium Stat NT-proBNP (BNP-Adult 18+) Stat PTT Partial Thromboplastin Adin Stat Prothrombin Time INR Stat Troponin & CK Cardiac Panel Stat 05/15/24 15:09 Trop I [Troponin I] Stat 05/15/24 15:26 Covid-19 + FLU A/B + RSV - PCR Stat Discontinued Medications Aspirin (Aspirin 81 Mg Chew Tab) 324 mg PO NOW ONE Stop: 05/15/24 12:43 Last Admin: 05/15/24 15:30 Dose: Not Given Documented By: MPO Vital Signs Vital signs: Vital Signs - 8 hr 05/15/24 13:30 05/15/24 13:30 05/15/24 14:00 Pulse Rate 63 Respiratory Rate 15 Blood Pressure 111/60 110/69 Pulse Oximetry 99 05/15/24 14:00 05/15/24 14:30 05/15/24 14:30 Pulse Rate 65 67 Respiratory Rate 16 13 Blood Pressure 120/70 Pulse Oximetry 98 100 05/15/24 15:00 05/15/24 15:00 05/15/24 15:24 Pulse Rate 65 Respiratory Rate 15 Blood Pressure 115/65 109/65 Pulse Oximetry 99 05/15/24 15:24 05/15/24 15:30 05/15/24 15:30 Pulse Rate 64 65 Respiratory Rate 12 12 Blood Pressure 106/65 Pulse Oximetry 100 99 05/15/24 16:00 05/15/24 16:00 05/15/24 16:30 Pulse Rate 68 Respiratory Rate 15 Blood Pressure 115/69 116/58 L Pulse Oximetry 100 05/15/24 16:30 05/15/24 17:00 05/15/24 17:00 Pulse Rate 72 68 Respiratory Rate 14 17 Blood Pressure 114/66 Pulse Oximetry 100 99 05/15/24 17:30 05/15/24 17:30 05/15/24 17:50 Pulse Rate 65 Respiratory Rate 16 Blood Pressure 116/60 112/65 Pulse Oximetry 99 05/15/24 17:50 05/15/24 18:00 05/15/24 18:01 Pulse Rate 63 78 Respiratory Rate 14 21 Blood Pressure 107/82 Pulse Oximetry 97 98 05/15/24 18:01 05/15/24 18:30 Pulse Rate 59 L 80 Respiratory Rate 15 27 H Blood Pressure Pulse Oximetry 100 98 MDM - Chest Pain Lab Data Attestation: I reviewed the patient's lab results. 05/15/24 13:08 05/15/24 13:08 Labs: Lab Results 05/15/24 05/15/24 05/15/24 Range/Units 13:08 15:09 15:26 WBC 5.6 (4.5-11.0) X10^3/uL RBC 4.51 (4.0-5.2) X10^6/uL Hgb 15.1 (12.0-16.0) g/dL Hct 43.9 (36-46) % MCV 97.4 (80-100) fL MCH 33.4 (26-34) PG MCHC 34.3 (30-36) % RDW 12.3 (11.6-14.8) % Plt Count 245 (150-400) X10^3/uL Neut % (Auto) 63.6 (50-75) % Lymph % (Auto) 27.2 (25-40) % Saline % (Auto) 6.8 (3-14) % Eos % (Auto) 1.6 L (2-4) % Baso % (Auto) 0.8 (0-2) % Neut # (Auto) 3500 (7355-1171) /uL Lymph # (Auto) 1500 (8087-6108) /uL Saline # (Auto) 400 (0-900) /uL Eos # (Auto) 100 (0-450) /uL Baso # (Auto) 0 (0-100) /uL PT 11.1 (9.4-12.5) SECONDS INR 1.0 (0.9-1.3) APTT 31 (25.1-36.5) SECONDS Sodium 138 (137-145) mmol/L Potassium 4.1 (3.4-5.1) mmol/L Chloride 106 (98-107) mmol/L Carbon Dioxide 21 L (22-32) mmol/L BUN 13 (7-17) mg/dL Creatinine 0.69 (0.52-1.04) mg/dL Estimated GFR > 60 (>60) mL/min BUN/Creatinine Ratio 18.8 (6-22) Glucose 114 H (70-100) mg/dL Calcium 9.2 (8.4-10.2) mg/dL Magnesium 2.2 (1.6-2.3) mg/dL Total Bilirubin 1.0 (0.2-1.3) mg/dL AST 31 (14-36) IU/L ALT 19 (<35) IU/L Alkaline Phosphatase 41 (38-126) U/L Total Creatine Kinase 69 (30-135) U/L Troponin I < 0.012 < 0.012 (0.01-0.034) ng/mL NT-Pro-B Natriuret Pep 54 (<125) pg/mL Total Protein 7.6 (6.3-8.2) g/dL Albumin 4.7 (3.5-5.0) g/dL Globulin 2.9 (1.7-4.1) g/dL Albumin/Globulin Ratio 1.6 (1.0-2.8) Lipase 69 (23-300) U/L SARS-CoV-2 (PCR) Negative (Negative) Influenza A (RT-PCR) Flu a negative (NEGATIVE) Influenza B (RT-PCR) Flu b negative (NEGATIVE) RSV (PCR) Negative (Negative) Imaging Data Chest x-ray: Radiologist's Impression: Close Chest X-Ray (Signed) Kev Magaña - 05/15/24 Launch?[address] [address] XRay Report Signed Patient: Zack Aguillon MR#: [id number] : 1980 Acct:[id number] Age/Sex: 43 / F Date of Service: 05/15/24 Loc: ED Accession Number: [id number] Procedure: XR chest 1V Ordering Provider: Phuc Gomes MD PROCEDURE: XR CHEST 1V INDICATIONS: chest pain TECHNIQUE: One view of the chest was acquired. COMPARISON: None. FINDINGS: Surgical changes and devices: None. Lungs and pleura: Lungs are clear. No pleural effusions or pneumothorax. Mediastinum: Mediastinal contours appear normal. Heart size is normal. Bones and chest wall: No suspicious bony lesions. Overlying soft tissues appear unremarkable. IMPRESSION: No acute cardiopulmonary abnormality is seen. Dictated by: Kev Magaña M.D. on 05/15/2024 at 15:33 Approved by: Kev Magaña M.D. on 05/15/2024 at 15:33 ECG Data Attestation: I personally reviewed and interpreted this ECG as follows: Interpretation: Normal sinus rhythm with rate of 70, no obvious ST segment elevation or depression changes. Incomplete right bundle branch block pattern. DE 164, QRS 114, QTC 432. MDM Narrative Medical decision making narrative: 43-year-old female with nonpleuritic atraumatic precordial chest discomfort for the last 3 days, unclear cause, no change with food, no change with position, unremarkable physical exam. Screening EKG without obvious ischemic changes, normal sinus rhythm. Initial troponin negative. Chest x-ray negative. DDx consider ACS, DARLYN, gastritis, biliary, choledocholithiasis, PUD, muscular, esophageal spasm, other. White blood cell count, hemoglobin, LFTs, lipase normal. Urinalysis results pending. Declines GI cocktail for now. Would like [facility] PCR COVID screening, ordered. We will obtain interval repeat troponin. Repeat troponin negative. COVID results pending. COVID negative. Unclear cause of her chest discomfort, consider omeprazole antacid trial. Consider baby aspirin daily. Further workup as an outpatient for now. Discharged home. Critical Care Time Critical Care Time Critical Care Time: Yes Total Critical Care Time: 31 Attestation: The high probability of a clinically significant, sudden or life threatening deterioration of the [cardiopulmonary, abdominopelvic, genitourinary] system(s) required my full and direct attention, intervention and personal management. The aggregate critical care time was [31] minutes. This time is in addition to time spent performing reported procedures but includes the following: [x] Data Review and interpretation [x] Patient assessment and monitoring of vital signs [x] Documentation [x] Medication orders and management Discharge Plan Departure Patient Disposition: Home Clinical Impression: Chest pain Activity Restrictions/Additional Instructions: Chest discomfort of unclear cause, chest x-ray unremarkable. COVID swab testing negative. EKG and serial blood tests not show evidence for heart attack at this time. Consider trial of omeprazole antacid to see if that might help her discomfort if this might be acid related, as there has no specific test to screen for this. Consider taking baby aspirin today that can be cardio protective if you happen to have some kind of underlying cardiac problem. Further testing as an outpatient for now. Follow up with your regular doctor early next week. Return to this/nearest emergency department for any change worsening symptoms or any concerns prior Prescriptions: New omeprazole 20 mg capsule,delayed release(DR/EC) 20 mg PO DAILY 30 Days Qty: 30 0RF No Action (DME) Sharps container See Rx Instructions .Route .MEDSUPPLY Qty: 1 0RF Rx Instructions: As directed (DME) syringe (disposable) 3 mL syringe See Rx Instructions .ROUTE .COMPLEX Qty: 48 2RF Dose Instruction: USE DIRECTED. Rx Instructions: USE DIRECTED. mecobalamin (vitamin B12) 10,000 mcg recon soln 1,000 mcg IM .weekly Qty: 1 12RF (DME) Blunt needles See Rx Instructions .Route .MEDSUPPLY Qty: 100 3RF Rx Instructions: As directed (DME) BD Regular Bevel [place] 25 gauge x 1 1/2 needle See Rx Instructions .Route Qty: 100 3RF Rx Instructions: USE TO DRAW AND ADMINISTER MECOBALAMIN IM ONCE WEEKLY estradiol 0.05 mg/24 hr patch semiweekly 1 patch transdermal 2XW Qty: 24 3RF Rx Instructions: apply 1 patch twice a week epinephrine 0.3 mg/0.3 mL auto-injector 0.3 mg IM Q4H PRN (Reason: hypersensitivity reaction) Qty: 2 0RF naproxen 500 mg tablet,delayed release (DR/EC) 500 mg PO BID PRN (Reason: pain) Qty: 60 5RF cyclobenzaprine 10 mg tablet 10 mg PO TID PRN (Reason: muscle spasm) Qty: 90 1RF dextroamphetamine-amphetamine 5 mg capsule,extended release 24hr See Rx Instructions PO DAILY PRN (Reason: ADD) Qty: 60 0RF Rx Instructions: PO daily PRN; Take 10-15mg, PO daily; Mirena 21 mcg/24 hours (8 yrs) 52 mg intrauterine device intrauterine dextroamphetamine-amphetamine 5 mg capsule,extended release 24hr See Rx Instructions PO DAILY PRN (Reason: ADD) Qty: 90 0RF Rx Instructions: PO daily PRN; Take 10-15mg, PO daily; Referrals: Yemi Reyez DO [Primary Care Provider] - Stand Alone Forms: Patient Portal/API
[2024-05-15 15:44] LABS: Troponin I < 0.012 ng/mL (0.01-0.034)
[2024-05-15 17:55] LABS: Influenza A - CEPHEID Flu A NEGATIVE (NEGATIVE); Influenza B - CEPHEID Flu B NEGATIVE (NEGATIVE); Respiratory Syncytial Virus Negative (Negative)
[2024-05-15 17:56] LABS: COVID-19 CEPHEID 4-PLEX PCR Negative (Negative)
== END 2024-05-15 18:43 | disposition home or self-care (01) ==
PROVIDERS: Emergency Provider Emergency Medicine; Family Provider Family Medicine; PCP Family Medicine
DX: R07.9 Chest pain, unspecified (principal); I45.10 Unspecified right bundle-branch block; Z11.52 Encounter for screening for COVID-19
CPT/HCPCS: 0241U; 36415; 71045; 80053; 82550; 83690; 83735; 83880; 84484; 85025; 85610; 85730; 93005; 99283; 99284

== ENCOUNTER → 2024-05-18 09:36 | Outpatient (CLI) | payer OTHER, SELFPAY ==
[2024-05-18 10:09] LABS: Add Manual Diff / Slide Review NO; Basophils Absolute Auto 0 /uL (0-100); Basophils Percent Auto 0.4 % (0-2); Eosinophils Absolute Auto 100 /uL (0-450); Eosinophils Percent Auto 1.7 % (2-4); Hematocrit 43.6 % (36-46); Hemoglobin 15.2 g/dL (12.0-16.0); Lymphocytes Absolute Auto 1300 /uL (1100-4500); Lymphocytes Percent Auto 26.7 % (25-40); Mean Corpuscular HGB Conc 34.8 % (30-36); Mean Corpuscular Hemoglobin 33.5 PG (26-34); Mean Corpuscular Volume 96.3 fL (80-100); Monocytes Absolute Auto 500 /uL (0-900); Monocytes Percent Auto 9.8 % (3-14); Neutrophils Absolute Auto 3000 /uL (1500-7000); Neutrophils Percent Auto 61.4 % (50-75); Platelet Count 257 X10^3/uL (150-400); Red Blood Cell Count 4.53 X10^6/uL (4.0-5.2); Red Cell Distribution Width 12.1 % (11.6-14.8); White Blood Cell Count 4.9 X10^3/uL (4.5-11.0)
[2024-05-18 10:33] LABS: Alanine Aminotransferase 15 IU/L (<35); Albumin 4.5 g/dL (3.5-5.0); Albumin Globulin Ratio 1.7 (1.0-2.8); Alkaline Phosphatase 41 U/L (38-126); Aspartate Aminotransferase 20 IU/L (14-36); BUN Creatinine Ratio 12.7 (6-22); Bilirubin Total 0.8 mg/dL (0.2-1.3); Blood Urea Nitrogen 10 mg/dL (7-17); Calcium 9.5 mg/dL (8.4-10.2); Carbon Dioxide 25 mmol/L (22-32); Chloride 105 mmol/L (98-107); Cholesterol 162 mg/dL (140-199); Estimated Glomerular Filt Rate > 60 mL/min (>60); Globulin 2.6 g/dL (1.7-4.1); Glucose 86 mg/dL (70-100); HDL Cholesterol 90 mg/dL (40-60); HEMOLYSIS < 15 (0-50); LDL Cholesterol Calculated 59 mg/dL (<100); Potassium 4.6 mmol/L (3.4-5.1); Sodium 139 mmol/L (137-145); Total Protein 7.1 g/dL (6.3-8.2); Triglycerides 65 mg/dL (35-150)
[2024-05-18 10:59] LABS: TSH w/ Reflex to FT4 1.41 uIU/mL (0.47-4.68)
[2024-05-18 11:01] LABS: Cortisol AM (Before 10AM) 7.18 ug/dL (4.46-22.7)
[2024-05-18 11:02] LABS: Estradiol, Total 65.4 pg/mL
== END ==
LOC: LAB 09:37
PROVIDERS: Obstetrics & Gynecology; Family Provider Family Medicine; PCP Family Medicine; Referring Provider Family Medicine; Visit Provider Family Medicine
DX: E28.39 Other primary ovarian failure (principal); N95.1 Menopausal and female climacteric states; F41.9 Anxiety disorder, unspecified; R53.83 Other fatigue; Z13.21 Encounter for screening for nutritional disorder; G60.8 Other hereditary and idiopathic neuropathies; R61 Generalized hyperhidrosis; R07.9 Chest pain, unspecified
CPT/HCPCS: 36415; 80053; 80061; 82533; 82670; 84443; 85025

== ENCOUNTER → 2024-11-26 10:01 | Outpatient (CLI) | payer OTHER, SELFPAY ==
[2024-11-26 11:55] LABS: Progesterone, Total 0.83 ng/mL
[2024-11-26 12:11] LABS: Estradiol, Total 53.1 pg/mL
[2024-11-26 12:12] LABS: Cancer Antigen 125 < 5.5 U/mL (0-35)
[2024-11-26 12:32] LABS: Vitamin B12 893 pg/mL (239-931)
[2024-12-03 01:06] LABS: Percent Free Testosterone 3.43 % (0.50-2.80); Testosterone Free 0.76 ng/dL (0.10-0.85); Testosterone Total 22.2 ng/dL (.)
== END ==
PROVIDERS: Family Provider Family Medicine; PCP Family Medicine; Referring Provider Obstetrics & Gynecology; Visit Provider Obstetrics & Gynecology
DX: R68.82 Decreased libido (principal); R61 Generalized hyperhidrosis; N95.1 Menopausal and female climacteric states; E28.39 Other primary ovarian failure; G60.8 Other hereditary and idiopathic neuropathies; R53.83 Other fatigue; Z79.890 Hormone replacement therapy
CPT/HCPCS: 36415; 82607; 82670; 84144; 84402; 84403; 86304

== ENCOUNTER → 2024-12-11 10:12 | Outpatient (CLI) | payer OTHER, SELFPAY ==
--- NOTE | 2024-12-11 10:13 | DI.MG.S_ITS ---
MM diagnostic mammo unilat LT: 12/11/2024. BI-RADS: 3 CLINICAL: 44-year old female for left diagnostic mammogram. The patient presents for 6 month follow-up. Tyrer-Cuzick lifetime risk of 20.4%. No personal or first-degree family history of breast cancer. Current reported family history of breast cancer: maternal grandmother. The patient had a prior left breast biopsy. PRIOR EXAMS 02/29/2024, 02/09/2024, 11/29/2022, 10/21/2022. MAMMOGRAPHY TECHNIQUE: 2D and 3D (tomosynthesis) digital mammographic views obtained, with additional images as needed for full coverage. Current study was also evaluated with a Computer Aided Detection (CAD) system. DENSITY Left: D. The breasts are extremely dense, which lowers the sensitivity of mammography. MAMMOGRAPHY FINDINGS Left: MLO only, Upper, Posterior depth: Correlating with prior imaging concern there is an asymmetry seen only on one view. This finding appears less conspicuous with rolled views and likely represents superimposed fibroglandular tissue. IMPRESSION: Left (Asymmetry): MLO only, Upper, Posterior depth * Probably Benign. RECOMMENDATIONS Left: MLO only, Upper, Posterior depth * Six month followup with diagnostic mammography. When the patient returns for short-term unilateral followup, a bilateral screening mammogram will also be due (The last performed screening of the right breast was on 02/09/2024). Left * In addition, this patient has an elevated lifetime risk for breast cancer of over 20%. Recommend consideration for annual screening breast MRI as an adjunct to screening mammography. This can be scheduled in the interim before the patient's next mammogram followup. OVERALL ASSESSMENT CATEGORY BI-RADS-3: Probably Benign. ELECTRONICALLY SIGNED: Danica Bob M.D. on 12/11/2024 at 01:20:34 PM PT Interpreting Station ID: [id number]
== END ==
LOC: MAMMO 10:13
PROVIDERS: Family Provider Family Medicine; PCP Family Medicine; Referring Provider Family Medicine; Visit Provider Family Medicine
DX: R92.8 Other abnormal and inconclusive findings on diagnostic imaging of breast (principal); Z80.3 Family history of malignant neoplasm of breast; R92.343 Mammographic extreme density, bilateral breasts
CPT/HCPCS: 77065; G0279

== ENCOUNTER → 2025-01-22 11:56 | Outpatient (CLI) | payer OTHER, SELFPAY ==
--- NOTE | 2025-01-22 11:57 | DI.MRI.S_ITS ---
MR breast BI wo/w con: 01/22/2025. BI-RADS: 1 CLINICAL: 44-year old female for bilateral diagnostic breast MRI. No personal or first-degree family history of breast cancer. Current reported family history of breast cancer: maternal grandmother. The patient had a prior left breast biopsy. PRIOR EXAMS: Mammogram(s): 12/11/2024. Six Other Exams on 02/29/2024, 02/09/2024, 11/29/2022, 10/21/2022. MRI TECHNIQUE: Gadavist was injected intravenously: mL. IV Contrast: 20 ml ProHance. FIBROGLANDULAR TISSUE Bilateral: D. Extreme fibroglandular tissue. BACKGROUND PARENCHYMAL ENHANCEMENT Bilateral: Moderate symmetrical background parenchymal enhancement. BREAST FINDINGS Right: No suspicious mass, suspicious non-mass enhancement, or other concerning finding identified. Left: MLO only, Upper: No MRI abnormalities were seen in the left breast to correlate with previously described architectural distortion in the posterior depth of the upper left breast seen only on the mediolateral oblique views. There were no sonographic correlates seen. Otherwise, there is no suspicious mass, non-mass enhancement, or architectural distortion. No skin or nipple abnormalities. No axillary or internal mammary chain adenopathy. IMPRESSION: * No evidence of malignancy. RECOMMENDATIONS Left: MLO only, Upper * No MRI evidence for malignancy. However, given findings were only visualized by mammography and not completely resolved, recommend continued imaging surveillance by mammography in 6 months. Patient will also be due for her screening of the contralateral breast. OVERALL ASSESSMENT CATEGORY BI-RADS-1: Negative. ELECTRONICALLY SIGNED: Warren Cole M.D. on 01/24/2025 at 09:40:19 PM PT Interpreting Station ID: [id number]
== END ==
PROVIDERS: Family Provider Family Medicine; PCP Family Medicine; Referring Provider Family Medicine; Visit Provider Family Medicine
DX: R92.8 Other abnormal and inconclusive findings on diagnostic imaging of breast (principal); Z91.89 Other specified personal risk factors, not elsewhere classified; Z80.3 Family history of malignant neoplasm of breast; R92.323 Mammographic fibroglandular density, bilateral breasts
CPT/HCPCS: 77049; A9579

== ENCOUNTER → 2025-07-31 09:21 | Outpatient (CLI) | payer OTHER, SELFPAY ==
[2025-08-02 12:40] LABS: Trichomoas vaginalis Negative (Negative)
== END ==
PROVIDERS: Family Provider Family Medicine; PCP Family Medicine; Visit Provider Obstetrics & Gynecology
DX: R30.0 Dysuria (principal); N89.8 Other specified noninflammatory disorders of vagina
CPT/HCPCS: 81514; 87086

== ENCOUNTER → 2025-07-31 11:53 | Outpatient (CLI) | payer OTHER, SELFPAY ==
[2025-07-31 12:32] LABS: Add Manual Diff / Slide Review NO; Hematocrit 44.4 % (36-46); Hemoglobin 15.3 g/dL (12.0-16.0); Lymphocytes Absolute Auto 1700 /uL (1100-4500); Mean Corpuscular HGB Conc 34.5 % (30-36); Mean Corpuscular Hemoglobin 33.1 PG (26-34); Mean Corpuscular Volume 96.0 fL (80-100); Platelet Count 235 X10^3/uL (150-400)
[2025-07-31 13:04] LABS: Alanine Aminotransferase 15 IU/L (<35); Albumin 4.6 g/dL (3.5-5.0); Albumin Globulin Ratio 1.7 (1.0-2.8); Alkaline Phosphatase 53 U/L (38-126); Blood Urea Nitrogen 14 mg/dL (7-17); Calcium 9.3 mg/dL (8.4-10.2); Carbon Dioxide 25 mmol/L (22-32); Chloride 102 mmol/L (98-107); Estimated Glomerular Filt Rate > 60 mL/min (>60); Globulin 2.7 g/dL (1.7-4.1); Glucose 91 mg/dL (70-99); HEMOLYSIS < 15 (0-50); Potassium 4.2 mmol/L (3.4-5.1); Sodium 137 mmol/L (137-145); Total Protein 7.3 g/dL (6.3-8.2)
== END ==
PROVIDERS: Family Provider Family Medicine; PCP Family Medicine; Referring Provider Physician Assistant; Visit Provider Physician Assistant
DX: M54.9 Dorsalgia, unspecified (principal); N94.89 Other specified conditions associated with female genital organs and menstrual cycle
CPT/HCPCS: 36415; 80053; 81514; 85025; 87086; 87210

== ENCOUNTER → 2025-08-12 17:36 | Outpatient (CLI) | payer OTHER, SELFPAY | PROVIDERS: Family Provider Family Medicine; PCP Family Medicine; Visit Provider Obstetrics & Gynecology | DX: Z11.3 Encounter for screening for infections with a predominantly sexual mode of transmission (principal); N89.8 Other specified noninflammatory disorders of vagina | CPT/HCPCS: 81514; 87491; 87563; 87591 ==